=== PATIENT | born 1960 ===

== ENCOUNTER 2025-05-27 14:51 | Outpatient (NON) | payer MEDICARE, SELFPAY ==
--- OUTSIDE RECORDS SUMMARY | 2025-05-27 14:59 | XMS_ITS | Encounter Summary ---
Author Organization [facility] Address [address] [place] [address] Phone Care Team Providers Care Supervisor Laboratory Name Role Phone Dakota Sheldon MD Primary Care Provider [phone] Miscellaneous, Not In File Unavailable Unava ilable Encounter Details Date Type Department Care Team (Late st Contact Info) Description 04/01/2025 Telephone [facility] Scheduling [address] [place], [place] [id number] Maximo Dominguez MD [address] [phone] Social History Tobacco Use Types Packs/Day Years Used Date Smoking Tobacco: Never Passive Smoke Exposure: Past Smokeless Tobacco: Former Chew Quit: [address] [facility] Utilities Answer Date Recorded In the past 12 months has [employer], gas, oil, or water [employer] threatened to shut off services in your home? No 02/11/2025 Social Connection and Isolat ion Panel [NHANES] Answer Date Recorded In a typical week, how many times do you talk on the phone with family, friends, or neighbors? More than three times a week 02/11/2025 How often do you get togethe r with friends or relatives? Twice a week 02/11/2025 How often do you attend [facility] or mu-ism services? Never 02/11/2025 Do you belong to any clubs o r organizations such as methodist groups, unions, fraternal or athletic groups, or school groups? No 02/11/2025 How often do you attend meet ings of the clubs or organizations you belong to? Never 02/11/2025 Are you , , di vorced, , never , or living with a partner? 02/11/2025 AUDIT-C Answer Date Recorded Q1: How often do you have a drink containing alcohol? Never 01/31/2025 Q2: How many drinks containi ng alcohol do you have on a typical day when you are drinking? Patient does not drink Q3: How often do you have si x or more drinks on one occasion? Never 01/31/2025 Overall Financial Resource Strain (CARDIA) Answe r Date Recorded How hard is it for you to pa y for the very basics like food, housing, medical care, and heating? Not hard at all 02/11/2025 PHQ-2 Answer Date Recorded PHQ-2 Total Score 0 02/11/2025 Hunger Vital Sign Answer Date Recorded Within the past 12 months, y ou worried that your food would run out before you got the money to buy more. Never true 02/12/20 Within the past 12 months, t he food you bought just didn't last and you didn't have money to get more. Never true 02/11/2025 PRAPARE - Transportation Answer Date Re corded In the past 12 months, has l ack of transportation kept you from medical appointments or from getting medications? No 01/19 In the past 12 months, has l ack of transportation kept you from meetings, work, or from getting things needed for daily living? No 02/11/2025 Housing Stability Vital Sign Answer Addison e Recorded In the last 12 months, was t here a time when you were not able to pay the mortgage or rent on time? No 02/11/2025 In the past 12 months, how m any times have you moved where you were living? 0 02/11/2025 At any time in the past 12 m [facility], were you homeless or living in a penitentiary (including now)? No 02/11/2025 Personal Safety Answer Date Recorded Have you ever been in or are you currently in a harmful physical or emotional relationship or is someone making you feel afraid or unsafe? Denies 02/11/2025 Sex and Gender Information Value Date Recorded Sex Assigned at Male 09/03/2024 6:44 PM CHILDREN'S MINISTRY DIRECTOR Legal Sex Male 9:50 AM CDT Gender Identity Male 09/03/2024 6:44 PM CHILDREN'S MINISTRY DIRECTOR Sexual Orientation Felipe 09/03/2024 6: 44 PM CHILDREN'S MINISTRY DIRECTOR documented as of this encounter Plan of Treatment Not on file documented as of this encounter Visit Diagnoses Not on filedocumented in this encounter Care Teams Supervisor Laboratory Relationship Specialty Start Date End Date Dakota Sheldon MD [address] [place] [address] PCP - General Family Medicine 04/27/24 Miscellaneous, Not In File 11/05/24 documented as of this encounter
--- OUTSIDE RECORDS SUMMARY | 2025-05-27 14:59 | XMS_ITS | Encounter Summary ---
Author Organization [facility] Address [address] [place] [address] Care Team Providers Care Balance Weigher Name Role Phone Unavailable Primary Care Provider Unavailabl e Encounter Details Date Type Department Care Team (Late st Contact Info) Description 08/09/2024 Lab Requisition [facility] Laboratory Services [address] [place] [phone] Wimler Rodriguez MD [address] [place], [place] [id number] Severe sepsis without septic shock (CODE) (CMS/HCC); Sepsis, unspecified organism (CMS/HCC) Social History Tobacco Use Types Packs/Day Years Used Date Smoking Tobacco: Never Assessed Sex and Gender Information Value Date Recorded Sex Assigned at Not on file Legal Sex Male 3:22 PM CDT Gender Identity Not on file Sexual Orientation Not on file documented as of this encounter Plan of Treatment Not on file documented as of this encounter Procedures Procedure Name Priority Date/Time Associated Diagnosis Comments CBC WITH DIFFERENTIAL Routine 08/09/2024 11:15 AM CDT Severe sepsis without septic shock (CODE) Sepsis, unspecified organism COMPREHENSIVE METABOLIC PANEL Routine 08/09/2024 11:15 AM CDT Severe sepsis without septic shock (CODE) Sepsis, unspecified organism documented in this encounter Results * (ABNORMAL) CBC WITH DIFFERENTIAL (08/09/2024 11:15 AM CDT) WBC 5.6 3.5 - 11.0 K/uL 08/09/2024 3:[address] [facility] RBC 4.32(L) 4.40 - 5.90 M/uL 08/09/2024 3:53 PM [facility] HEMOGLOBIN 11.5(L) 13.3 - 17.7 g/dL 08/09/2024 3:53 PM [facility] HEMATOCRIT 36.9(L) 40.0 - 52.0 % 08/09/2024 3:53 PM [facility] MCV 85.5 80.5 - 99.7 fL 08/09/2024 3:53 PM [facility] MCH 26.7 26.4 - 34.0 pg 08/09/2024 3:53 PM [facility] MCHC 31.2(L) 31.4 - 36.3 g/dL 08/09/2024 3:53 PM [facility] RDW 16.5(H) 11.0 - 15.0 % 08/09/2024 3:53 PM [facility] PLATELETS 299 150 - 450 K/uL 08/09/2024 3:53 PM [facility] MPV 6.8(L) 7.5 - 11.2 fL 08/09/2024 3:53 PM [facility] NEUTROPHILS 55 50 - 75 % 08/09/2024 3:53 PM [facility] LYMPHOCYTES 30 19 - 48 % 08/09/2024 3:53 PM [facility] MONOCYTES 9 0 - 10 % 08/09/2024 3:53 PM [facility] EOSINOPHILS 4 0 - 6 % 08/09/2024 3:53 [facility] BASOPHILS 1 0 - 2 % 08/09/2024 3:53 PM [facility] NEUTROPHIL ABSOLUTE 3.06 >=0.50 K/uL 08/09/2024 3:53 PM [facility] LYMPHOCYTE ABSOLUTE 1.68 K/uL 08/09/2024 3:53 PM [facility] MONOCYTE ABSOLUTE 0.53 K/uL 08/09/2024 3:53 PM [facility] EOSINOPHIL ABSOLUTE 0.25 K/uL 08/09/2024 3:[address] [facility] BASOPHILS ABSOLUTE 0.07 K/uL 08/09/2024 3:[address] [facility] Blood 08/09/2024 11:1 5 AM CDT 08/09/2024 1:32 PM CDT Wilmer Rodriguez MD HEMATOLOGY ORDERABLES Final Result [facility] [id number] [address] [place] [id number] * (ABNORMAL) COMPREHENSIVE METABOLIC PANEL (08/09/2024 11:15 AM CDT) SODIUM 142 136 - 145 mmol/L 08/09/2024 2:41 PM [facility] POTASSIUM 4.0 3.2 - 4.9 mmol/L 08/09/2024 2:41 PM [facility] CHLORIDE 107 98 - 111 mmol/L 08/09/2024 2:41 PM T [facility] CO2 24 22 - 29 mmol/L 08/09/2024 2:41 PM T [facility] CALCIUM 9.0 8.4 - 10.5 mg/dL 08/09/2024 2:[address] [facility] BUN 25(H) 6 - 24 mg/dL 08/09/2024 2:41 PM T [facility] CREATININE 1.39 0.70 - 1.40 mg/dL 08/09/2024 2:[address] [facility] GLUCOSE 83 70 - 115 mg/dL 08/09/2024 2:[address] [facility] TOTAL PROTEIN 6.8 6.0 - 8.4 g/dL 08/09/2024 2:41 PM CDT [facility] ALBUMIN 3.8 3.5 - 5.2 g/dL 08/09/2024 2:41 PM CDT [facility] BILIRUBIN TOTAL 0.4 0.3 - 1.3 mg/dL 08/09/2024 2:41 PM [facility] ALKALINE PHOSPHATASE 80 40 - 150 U/L 08/09/2024 2:41 PM [facility] AST 19 <=39 U/L 08/09/2024 2:41 PM [facility] ALT 14 <=55 U/L 08/09/2024 2:41 PM [facility] GFR 57(L) >=60 mL/min/1.7 3 sq meter 08/09/2024 2:41 PM [facility] Comment:eGFR calculated with 2020 CKD-EPI equation. Vegetarian diet, extremely high or low muscle mass, and may affect results. Cystatin C with Glomerular Filtration Rate is a suitable alternative for these patients. ANION GAP 11 7 - 16 mmol/L 08/09/2024 2:41 PM [facility] Blood Collection / Unknown 08/09/2024 11:15 AM CDT 08/09/2024 1:32 PM CDT Wilmer Rodriguez MD CHEMISTRY ORDERABLES F inal Result [facility] [id number] [address] [place] [address] documented in this encounter Visit Diagnoses Diagnosis Severe sepsis without septic shock (CODE) (CMS/HCC) Sepsis, unspecified organism (CMS/HCC) documented in this encounter
--- OUTSIDE RECORDS SUMMARY | 2025-05-27 14:59 | XMS_ITS | Encounter Summary ---
Author Organization [facility] Address [address] [place] [address] Care Team Providers Care Toy Stuffer Name Role Phone Unavailable Primary Care Provider Unavailabl e Prior Encounters Date Type Department Care Team Description 06/05/2022 11:30 AM MDT Office Visit [facility] [address] [place] [address] Vicki Dietrich DMD 11/08/2019 Converted 13x Documents [facility] [address] [place] [phone] <No scans attached> 11/08/2019 Converted CPS Chart Documents [facility] [address] [place] [address] <No scans attached> Plan of Treatment Not on file Procedures Procedure Name Priority Date/Time Associated Diagnosis Comments PROPHYLAXIS - ADULT Routine 06/05/2022 1 1:30 AM MDT INTRAORAL PHOTO Routine 06/05/2022 11:30 AM MDT INTRAORAL PHOTO Routine 06/05/2022 11:30 AM MDT INTRAORAL PHOTO Routine 06/05/2022 11:30 AM MDT INTRAORAL - COMPREHENSIVE SERIES OF RADIOGRAPHIC IMAGES Routine 06/05/2022 11:30 AM MDT COMPREHENSIVE ORAL EVALUATION - NEW OR ESTABLISHED PATIENT Routine 06/05/2022 11:30 AM MDT INTRAORAL PHOTO Routine 06/05/2022 11:30 AM MDT PANORAMIC RADIOGRAPHIC IMAGE Routine 06/05/2022 11:30 AM MDT 8 MIF(V)L COMPOSITE FILLING Routine 06/05/2022 12:00 AM MDT 9 MIF(V)L COMPOSITE FILLING Routine 06/05/2022 12:00 AM MDT 20 DOBL COMPOSITE FILLING Routine 2021 12:00 AM MDT 30 MODBL AMALGAM FILLING Routine 022 12:00 AM MDT 31 O AMALGAM FILLING Routine 06/05/2022 12:00 AM MDT 3 KWASI AMALGAM FILLING Routine 06/05/2022 12:00 AM MDT 4 O AMALGAM FILLING Routine 06/05/2022 1 2:00 AM MDT 18 O AMALGAM FILLING Routine 06/05/2022 12:00 AM MDT 14 DOBL AMALGAM FILLING Routine 06/05/20 22 12:00 AM MDT 6 PFM CROWN Routine 06/05/2022 12:00 AM MDT 7 PFM CROWN Routine 06/05/2022 12:00 AM MDT PANORAMIC RADIOGRAPHIC IMAGE Routine 09/28/2019 1:00 AM MST ADDITIONAL X-RAY Routine 09/28/2019 1:00 AM MST SINGLE X-RAY Routine 09/28/2019 1:00 AM MST INTRAORAL PHOTO Routine 09/28/2019 1:00 AM MST Visit Diagnoses Not on file Insurance [facility]
--- OUTSIDE RECORDS SUMMARY | 2025-05-27 14:59 | XMS_ITS | Clinical Summary ---
Author Organization [facility] Address [address] [place] [address] Care Team Providers Care Automatic Coin Machine Mechanic Name Role Phone Unavailable Primary Care Provider Unavailabl e Social History Tobacco Use Types Packs/Day Years Used Date Smoking Tobacco: Never Assessed Sex and Gender Information Value Date Recorded Sex Assigned at Not on file Legal Sex Male 11:29 AM PDT Gender Identity Male 06/03/2022 9:11 AM PDT Sexual Orientation Not on file Plan of Treatment Health Maintenance Due Date Last Done Comments Dental Oral Exam 12/07/2022 06/05/2022 Dental Prophylaxis 12/07/2022 06/05/2022 Dental X-Ray: Bitewings 12/07/2022 06/05/2022 Dental X-Ray: Full Mouth 06/06/2025 06/05/2022 Dental X-Ray: Panoramic 06/06/2025 06/05/2022, 06/02, 09/28/2019 Procedures Procedure Name Priority Date/Time Associated Diagnosis Comments PANORAMIC RADIOGRAPHIC IMAGE Routine 06/05/2022 11:30 AM MDT PROPHYLAXIS - ADULT Routine 06/05/2022 1 1:30 AM MDT INTRAORAL - COMPREHENSIVE SERIES OF RADIOGRAPHIC IMAGES Routine 06/05/2022 11:30 AM MDT COMPREHENSIVE ORAL EVALUATION - NEW OR ESTABLISHED PATIENT Routine 06/05/2022 11:30 AM MDT from Last 3 Months or Most Recently Relevant to Health Maintenance [facility] [place] [id number]
--- OUTSIDE RECORDS SUMMARY | 2025-05-27 14:59 | XMS_ITS | Clinical Summary ---
Author Organization [facility] [address] [place] [address] eet Address [address] [place] [address] Care Team Providers Care Bandoleer Packer Name Role Phone Unavailable Primary Care Provider Unavailabl e Allergies Active Allergy Reactions Criticality Noted Date Comments Tramadol Nausea and Vomiting Low 08/31/2024 Encounters Date Type Department Care Team Description 04/12/2025 External Device Data [facility] ABSTRACTION Provider, Abstract from Last 3 Months Social History Tobacco Use Types Packs/Day Years Used Date Smoking Tobacco: Never Assessed Sex and Gender Information Value Date Recorded Sex Assigned at Not on file Legal Sex Male 3:22 PM CDT Gender Identity Not on file Sexual Orientation Not on file Last Filed Vital Signs Vital Sign Reading Time Taken Comments Blood Pressure 124/84 08/31/2024 8:44 AM TESTING ENGINEER Pulse 95 08/31/2024 8:44 AM TESTING ENGINEER Temperature 36.8 C (98.2 F) 08/31/2024 8:44 AM TESTING ENGINEER Respiratory Rate 16 08/31/2024 8:44 AM TESTING ENGINEER Oxygen Saturation 100% 08/31/2024 8:44 AM TESTING ENGINEER Inhaled Oxygen Concentration - - Weight 68 kg (150 lb) 08/31/2024 8:44 AM TESTING ENGINEER Height 172.7 cm (5' 8) 08/31/2024 8:44 AM TESTING ENGINEER Body Mass Index 22.81 08/31/2024 8:44 AM TESTING ENGINEER Plan of Treatment Health Maintenance Due Date Last Done Comments DIABETES ANNUAL FOOT EXAM 12/23/1979 DIABETES MICROALBUMIN ANNUAL SCREEN 12/23/1979 LDL CHOLESTEROL ANNUAL 12/23/1979 COLORECTAL SCREENING 2006 Colorectal Cancer Screening 2006 FIT-DNA Q 3 years 2006 FIT/FOBT Q 1 year 2006 Flex Sig/CT Colonography Q 5 years 2006 RSV VACCINE (60+ or ) (1 - Risk 60-74 years 1-dose series) 2021 COVID-19 Vaccine (4 - 2023-2 5 season) 2024 01/22/2022, 07/02/2021, 12/12/2020 DIABETES HBA1C Q 6 MONTHS 01/09/2025 07/12/2024 DIABETES ANNUAL RETINAL EXAM 01/21/2025 01/22/2024 INFLUENZA VACCINE (#1) 2025 3, 07/25/2022, 08/24/2021, Additional history exists DTAP/TDAP/TD VACCINES (2 - T d or Tdap) 06/19/2025 06/19/2015 ZOSTER VACCINE Completed 05/20/2019, 03/20/2019 Insurance [employer] GOLD CHOICE [facility] Address: [address] [address]
--- OUTSIDE RECORDS SUMMARY | 2025-05-27 14:59 | XMS_ITS | Encounter Summary ---
Author Organization [facility] Address [address] [facility] [address] [place] [address] Phone Care Team Providers Care Climbing Guide Name Role Phone Dakota Sheldon MD Primary Care Provider [phone] Miscellaneous, Not In File Unavailable Unava ilable Encounter Details Date Type Department Care Team (Late st Contact Info) Description 05/18/2025 Results Follow-Up [facility]rology [address] [facility] [address] [place] [address] Rita Hernandez MD [address] [facility] [place] [place] [address] Aerobic and anaerobic culture and gram stain Wound Abdominal Social History Tobacco Use Types Packs/Day Years Used Date Smoking Tobacco: Never Passive Smoke Exposure: Past Smokeless Tobacco: Former Chew Quit: 2006 [facility] Utilities Answer Date Recorded In the past 12 months has [employer] gas, oil, or water [employer] threatened to shut off services in your home? Patient unable to answer 05/16/2025 Social Connection and Isolation Panel [NHANES] A nswer Date Recorded In a typical week, how many times do you talk on the phone with family, friends, or neighbors? Patient unable to answer 05/16/2025 How often do you get togethe r with friends or relatives? Patient unable to answer 05/16/2025 How often do you attend chur ch or worship services? Patient unable to answer 05/16/2025 Do you belong to any clubs o r organizations such as anglican groups, unions, fraternal or athletic groups, or school groups? Patient unable to answer 05/16/2025 How often do you attend meet ings of the clubs or organizations you belong to? Patient unable to answer 05/16/2025 Are you , , di vorced, , never , or living with a partner? Patient unable to answer 05/16/2025 AUDIT-C Answer Date Recorded Q1: How often [...] like food, housing, medical care, and heating? Patient unable to answer 05/16/2025 PHQ-2 Answer Date Recorded PHQ-2 Total Score (If total score is 3 or more points, staff should administer the PHQ-9) 1 04/18/2025 Hunger Vital Sign Answer Date Recorded Within the past 12 months, y ou worried that your food would run out before you got the money to buy more. Patient unable to answer 05/16/2025 Within the past 12 months, t he food you bought just didn't last and you didn't have money to get more. Patient unable to answer 05/16/2025 PRAPARE - Transportation Answer Date Re corded In the past 12 months, has l ack of transportation kept you from medical appointments or from getting medications? Patient unable to answer 05/16/2025 In the past 12 months, has l ack of transportation kept you from meetings, work, or from getting things needed for daily living? Patient unable to answer 05/16/2025 Housing Stability Vital Sign Answer Addison e Recorded In the last 12 months, was t here a time when you were not able to pay the mortgage or rent on time? Patient unable to answer 05/16/2025 In the past 12 months, how m any times have you moved where you were living? 0 05/16/2025 At any time in the past 12 m ont, were you homeless or living in a care home (including now)? Patient unable to answer 05/16/2025 Personal Safety Answer Date Recorded Have you ever been in or are you currently in a harmful physical or emotional relationship or is someone making you feel afraid or unsafe? Denies 05/16/2025 Sex and Gender Information Value Date Recorded Sex Assigned at Male 09/03/2024 6:44 PM BAKER DOUGHNUT Legal Sex Male 9:50 AM CDT Gender Identity Male 09/03/2024 6:44 PM BAKER DOUGHNUT Sexual Orientation Felipe 09/03/2024 6: 44 PM BAKER DOUGHNUT documented as of this encounter Miscellaneous Notes * Result Encounter Note - Rita Hernandez MD - 05/18/2025 10:42 AM CDT Culture reviewed Patient is on appropriate antibiotics documented in this encounter Plan of Treatment Not on file documented as of this encounter Visit Diagnoses Not on filedocumented in this encounter Care Teams Climbing Guide Relationship Specialty Start Date End Date Dakota Sheldon MD [address] [place] [address] PCP - General Family Medicine 04/27/24 Miscellaneous, Not In File 11/05/24 documented as of this encounter
--- OUTSIDE RECORDS SUMMARY | 2025-05-27 14:59 | XMS_ITS | Clinical Summary ---
Author Organization [facility] Address [address] [place] [address] Care Team Providers Care Circulator Name Role Phone Dakota Sheldon MD Primary Care Provider [phone] Miscellaneous, Not In File Unavailable Unava ilable Allergies Active Allergy Reactions Criticality Noted Date Comments Adhesive Rash,Redness Medium 06/25/2024 Benzene Blisters High 06/02/2024 Benzphetamine Blisters High 04/01/2025 Ciprofloxacin Nausea only Low 01/31/2025 Brimonidine-Timolol Other (See comments) Low 2018 Blisters --- he tells me he tolerates timolol and takes this. Alvimopan Diarrhea Low 06/02/2024 Tramadol Nausea And Vomiting Low 06/02/2024 Medications TiZANidine (ZANAFLEX) 4 mg capsuleIndications:M uscle Spasm Take 2-6 mg by mouth 2 (two) times a day Half pill (2mg) in AM and 1.5 pills (6mg) at night Active colestipoL (COLESTID) 1 gram tabletIndications:Bi liary Obstruction with Pruritus Take 1 tablet (1 g total) by mouth 2 (two) times a day Active timoloL (BETIMOL) 0.5 % ophthalmic solutionIndications: open angle glaucoma Administer 1 drop into both eyes 2 (two) times a day Active aspirin 81 mg enteric coated tabletIndications:pr evention of thrombosis Take 1 tablet (81 mg total) by mouth nightly Active coenzyme Q10 100 mg capsuleIndications:s upplement Take 1 capsule (100 mg total) by mouth every morning Active blood glucose diagnostic (Accu-Chek Negra Plus test strp) strip 05/28/20 24 Active cholecalciferol (VITAMIN D-3) 2000 unit capsuleIndications:V itamin D Deficiency Take 1 capsule (2,000 Units total) by mouth 2 (two) times a day Active Accu-Chek Softclix Lancets lancets 03/24/20 24 Active latanoprost (XALATAN) 0.005 % ophthalmic solutionIndications: open angle glaucoma Administer 1 drop into both eyes nightly Active tamsulosin (FLOMAX) 0.4 mg extended release capsule Take 1 capsule (0.4 mg total) by mouth daily with dinner 30 capsule 1 07/26/20 24 Active Additional Information Patient taking differently:0.4 mg oral Daily with dinner,Indications: benign prostatic hyperplasia with lower urinary tract sx, Informant: Self, Reported on 04/01/2025 semaglutide (Rybelsus) 14 mg tabletIndications:ch ronic kidney disease associated with type 2 diabetes Take 1 tablet (14 mg total) by mouth rehabilitation therapist before breakfast Active atorvastatin (LIPITOR) 10 mg tabletIndications:co ronary artery disease,hyperlipidem ia Take 1 tablet (10 mg total) by mouth nightly Active metoprolol XL (TOPROL-XL) 50 mg extended release tabletIndications:Ve ntricular Arrhythmias,coronary artery disease Take 1 tablet (50 mg total) by mouth nightly Active ascorbic acid 500 mg tablet,chewableIndic ations:immune supplement Take 1 tablet/chew tab (500 mg total) by mouth rehabilitation therapist before breakfast Active cyanocobalamin, vitamin B-12, 1,500 mcg tablet,chewableIndic ations:Prevention of Vitamin B12 Deficiency Take 1,000 mcg by mouth rehabilitation therapist before breakfast Active acetaminophen 500 mg capsuleIndications:P ain Take 2 capsules (1,000 mg total) by mouth every 6 (six) hours as needed for pain or headaches 09/19/20 24 Active vitamin B complex capsuleIndications:V itamin Deficiency Prevention Take 1 capsule by mouth rehabilitation therapist before breakfast Active diphenhydrAMINE-acet aminophen (TYLENOL PM) 25-500 mg tabletIndications:In somnia Take 2 tablets by mouth nightly Active lutein-zeaxanthin 25-5 mg capsuleIndications:e ye supplement Take 1 capsule by mouth rehabilitation therapist before breakfast Active loratadine (CLARITIN) 10 mg tabletIndications:Al lergic Rhinitis Take 1 tablet (10 mg total) by mouth rehabilitation therapist before breakfast Active coffee xt/phosphatidyl serine (NEURIVA ORIGINAL ORAL)Indications:bra in supplement Take 1 capsule by mouth rehabilitation therapist before breakfast Active ELDERBERRY FRUIT ORALIndications:immu ne support Take 1 tablet/chew tab by mouth rehabilitation therapist before breakfast Active polyethylene glycol (MIRALAX) 17 gram/dose bulk powder Take 17 g by mouth daily 510 g 02/12/20 25 Active polyethylene glycol (MIRALAX) 17 gram/dose bulk powderIndications:co nstipation Take 17 g by mouth daily 03/07/20 25 Active dolutegravir-rilpivi rine (JULUCA) 50-25 mg tabletIndications:HI V infection Take 1 tablet by mouth rehabilitation therapist before breakfast 65 tablet 03/07/20 25 Active oxyCODONE (ROXICODONE) 5 mg immediate release tabletIndications:Pa in Take 1 tablet (5 mg total) by mouth every 4 (four) hours as needed for pain 20 tablet 03/07/20 25 Active Neuriva Plus Brain Performance 1.7 mg-400 mcg- 2.4 mcg capsule 03/07/20 25 Active oxyBUTYnin XL (DITROPAN XL) 15 mg 24 hr tablet Take 1 tablet (15 mg total) by mouth daily 11/14/19 25 Active vit C,X-Um-aiqtv-lutein- zeaxan (Ocuvite Lutein and Zeaxanthin) 60 mg-13.5 mg- 15 mg-2 mg-6 mg capsule Take by mouth 03/19/20 25 Active sevelamer (RENVELA) 800 mg tabletIndications:Re nal Osteodystrophy with Hyperphosphatemia Take 1 tablet (800 mg total) by mouth 2 (two) times a day with lunch and dinner 60 tablet 2 03/31/20 25 025 Active sulfamethoxazole-tri methoprim (BACTRIM DS) 800-160 mg per tablet Take 1 tablet by mouth 2 (two) times a day for 10 days 20 tablet 05/16/20 25 025 Active Problems Problem Noted Date Diagnosed Date Wound dehiscence 05/15/2025 Stage 4 chronic kidney disease 04/25/2025 Overview (04/25/2025): Following with nephrology, considering HD. Also following with urology for post-nephrectomy and urothelial carcinoma. Repeat CMP today Anemia 03/28/2025 Physical debility 03/28/2025 Discharge planning issues 02/14/2025 Assessment & Plan (02/26/2025 10:11 AM CDT): Lives in and uses walker at baseline for mobility -PT/OT recommending SNF placement 02/14: CM sending referrals for SNF placement 02/22: Lost authorization to SNF after being kept inpatient 11/21 worsening renal function 02/26: Renal function improving while off IVF, awaiting authorization for SNF ROLAN (acute kidney injury) 02/13/2025 Assessment & Plan (02/26/2025 10:12 AM CDT): 02/12: Cr 3.8, RBUS negative 02/13: Cr 4.18, 3L UOP 02/14: Cr 4.14, 3150cc UOP. Nephrology c/s yesterday, reportedly felt consult not necessary as appropriate increase in Cr post-op from nephroureterectomy. 02/26: Cr 4.66, 3400cc UOP. 1570cc PO intake charted. -Strict I/O -Limit nephrotoxic medications, renally dose medications -Optimize FEN Hypertension 02/13/2025 Assessment & Plan (02/13/2025 10:23 AM CDT): -home metoprolol xl Ureteral tumor 02/10/2025 Assessment & Plan (02/14/2025 11:28 AM CDT): 02/10: robotic L nephu for UTUC 02/13: Febrile to 102.6 ON with associated hypotension, tachycardia. Septic workup initiated, started on cefepime. VS improved currently with fluid resuscitation. 02/14: ID consult for fever ISO HIV infection -Continue watts to gravity Acute postoperative pain 02/10/2025 Sepsis 10/28/2024 Nephrolithiasis 09/08/2024 Renal mass 09/08/2024 Septic shock 09/03/2024 Stones in the urinary tract 09/02/2024 Severe protein-calorie malnutrition 07/17/2024 Assessment & Plan (07/17/2024 9:39 AM CDT): Dietitian following, ensure good meal intake + supplements. Severe sepsis 07/13/2024 Assessment & Plan (07/22/2024 1:16 PM CDT): Leukocytosis, fever, tachycardic, symptoms of ascending urinary tract infection with consistent UA and CT, and ROLAN c/w severe sepsis. His fistula and coccyx wound appears ok and not infected. No respiratory symptoms. He has complex pathogen history including urinary and wound Morganella morganii; urinary Staph Aureus, Enterococcus faecium, and Monique albicans. Most recently finished 2 courses of Doxy/Fluconazole. Staph aureus in the urine c/f blood infection. -S/P vanc/cefe in ED. For now on remains on fluconazole and will changed cefepime to ertapenem. -Follow up blood cultures, urine culture, and intraoperative kidney aspirate culture Current plan is for fluconazole po x 2 wks and ertapenem x 6 wks (ordered 5 weeks accounting for his time in the hospital). Full sensitivies are pending [facility] and may take several more days - plan for fluconazole 2 weeks, erta 6 weeks unless at some point able to go back on bactrim - Has CVC placed 07/20 - out of network for [facility] home infusion, will try to coordinate with PCP for OPA Pressure injury of coccygeal region, stage 1 Assessment & Plan (07/13/2024 2:10 AM CDT): Noted on arrival. Followed by wound care. Appears healing. -Continue wound care - wound care consult -Q2 hour turns. -PT/OT HIV disease 07/13/2024 Assessment & Plan (04/25/2025 10:36 AM CDT): On Juluca prescribed by [facility] doctor. Adherent to doses. Potential drug- drug interaction / absorbance issues with TID calcium carbonate started by nephrology. Will repeat labs today including VL, CD4, CMP. If VL elevated, would likely advise switching to injectable formulation or ART (Cabanuvo) which we discussed with the patient and . - Pending results, continue Juluca - May need switch to injectable ART, which should be permissible with current GFR/CKD - If initiates hemodialysis, can resume Biktarvy Assessment & Plan (02/16/2025 11:54 AM CDT): Patient is a 64 y.o. male with [facility] (last VL UD CD4 448), who is presenting for robotic assisted left nephroureterectomy for urothelial carcinoma performed on 02/10/25. Patient was doing well post-op but developed fever on 02/12 Tmax 39.2C. He was started empirically on vancomycin x1 and cefepime. Blood culture x2 02/12 NGTD, Urine culture 02/12 had clinically insignificant growth, and influenza, RSV, and COVID PCR were all negative. CXR 02/12 showed new moderate left basilar obacities compatible with aspiration and partial left lobe atelectasis. Currently he reports feeling better, no SOA, cough, chest pain, nausea, vomiting, diarrhea, rash. He reports some constipation. ID was consulted to help in management of antimicrobials given recent fever. Likely cause of fever was due to aspiration, without further causes can consider stopping antibiotics within the next 24 hours if cultures remain negative. Cefepime discontinued on 02/15. Creatinine notably up from baseline prior to surgery. Reached out to primary team to assess if this is patient's new baseline vs expecting renal function to improve. Primary team planning to touch base with nephrology. If this is patient's new baseline, will need to consider a change in HIV regimen. Discussed this with patient and asked if he would be able to see his primary HIV ID provider shortly after discharge. Patient reports he is currently not scheduled to be seen until May. Patient sees Dr. Milind Portillo Infectious Disease Specialist [phone] as his primary ID provider. Results: -CXR 02/12: New moderate left basilar opacities compatible with aspiration and partial left lower lobe atelectasis -Urine culture 02/12: clinically insignificant growth -Pneumonia PCR sputum 02/15: In process ID spoke with Dr. Portillo and it was decided Juluca would be a reasonable alternative for this patient. Discussed this with patient who is agreeable. Additionally, given patient plans to stay in the area for a prolonged period of time, discussed following up outpatient with [facility] to continue management. Patient was pleased with the plan. Spoke to patient's spouse, Wilmer, per patient's request. Discussed renal function, conversation with Dr Portillo and plan to transition to Juluca. Additionally, reviewed plan for outpatient follow up with Dr. Ramos. Questions answered as needed. Recommendations: -d/c Odefsey and start Juluca -appreciate nephrology recs regarding renal function. -Will reach out to clinic to establish follow up -Thank you for allowing us to participate in the care of this patient. For questions or concerns, please do not hesitate to reach out. Assessment & Plan (02/13/2025 10:20 AM CDT): -continue home meds Assessment & Plan (07/15/2024 4:11 PM CDT): [place] in [place] On Odefsey [id number] which we do not have formulary. On his home HAART therapy. Type 2 diabetes mellitus 07/13/2024 Assessment & Plan (07/17/2024 9:39 AM CDT): Takes metformin and glyxambi at home. Noted to have an AGMA on arrival though this has resolved making euglycemic DKA unlikely - more likely related to ROLAN. -Hold home orals -cont basal-bolus insulin regimen here, adjust insulin as needed Acute renal failure superimp osed on stage 3a chronic kidney disease 07/12/2024 Assessment & Plan (07/20/2024 2:00 PM CDT): Baseline Cr ~1.5 05/31/24 which is a CrCl around 47 by Cockroft-Gault formula. Up to creatinine 2.4 on admission iso obstructing stone and severe sepsis. Now s/p definitive treatment with ureteral stents. 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 Followed by Urology here with plans for SPT on 07/14/24 for urinary diversion which is now on hold - to continue with watts until follow up, continues to have leakage. urology, plan to increase oxybutinin XR to 15mg -Urology consultation Benign prostatic hyperplasia 04/04/2020 Hyperlipidemia 02/26/2018 Encounters Date Type Department Care Team Description 05/18/2025 Results Follow-Up [facility] Urology [address] [place] [phone] Rita Hernandez MD Aerobic and anaerobic culture and gram stain Wound Abdominal 05/15/2025 6:03 PM CDT - 05/16/2025 4:10 PM CDT Hospital Encounter [address] [phone] India Shook MD Smelser, Woodson Wade, MD Brown, Lawrence Robert, MD PhD Wound dehiscence (Primary Dx); Stage 5 chronic kidney disease not on chronic dialysis (HCC); Physical debility; Severe protein-calorie malnutrition Discharge Disposition: Discharge to home, home health skilled care 04/25/2025 10:32 AM CDT - 04/25/2025 11:59 PM CDT Hospital Encounter [facility] [address] [place] [address] Discharge Disposition: Discharge to home or self care 04/25/2025 9:40 AM CDT Office Visit [facility] Infectious Diseases [address] [place] [address] Juni Ramos MD HIV disease (HCC) (Primary Dx); Screening examination for STI; Stage 4 chronic kidney disease (HCC); Abnormal finding of blood chemistry, unspecified; HIV infection, unspecified symptom status (HCC) 04/07/2025 Telephone [facility] Infectious Diseases [address] [place] [address] Dustin Courtney TERRANCE 04/01/2025 10:20 AM CDT Office Visit [facility] Urology [address] [place] [address] Rita Hernandez MD Malignant neoplasm of urinary bladder, unspecified site (HCC) (Primary Dx) 04/01/2025 Telephone [facility] Scheduling [address] [place] [address] Maximo Dominguez MD 03/31/2025 1:40 PM CDT Office Visit [facility] Nephrology [address] [place] [address] [place] [phone] ROLAN (acute kidney injury); CKD (chronic kidney disease) requiring chronic dialysis (HCC) 03/31/2025 Telephone [facility] Nephrology [address] 5th [place] [address] [place] [address] Chiara Conrad MD [facility] KATHLEEN 03/31/2025 Orders Only [facility] Nephrology [address] [place] [address] [place] [phone] Chiara Conrad MD CKD (chronic kidney disease) requiring chronic dialysis (HCC) (Primary Dx) 03/25/2025 10:40 AM CDT Office Visit [facility] Urology [address] [facility] [address] [facility] [address] [place] [phone] Anjelica Ro NP Encounter for post surgical wound check (Primary Dx) 03/23/2025 Telephone [facility] Surgery [address] [place] [address] Sharri Osuna 03/23/2025 Orders Only [facility] Urology [address] [facility] [address] [facility] [address] [place] [address] Rita Hernandez MD 02/10/2025 11:33 AM CDT - 03/07/2025 5:39 PM CDT Hospital Encounter [facility] [address] [place] [address] Rita Hernandez MD Acute postoperative pain (Primary Dx); Acute renal failure superimposed on stage 3a chronic kidney disease, unspecified acute renal failure type (HCC); Renal mass; Urethral fistula; Ureteral tumor Discharge Disposition: Discharge to SNF from Last 3 Months Immunizations Immunization Administration Dates Next Due Influenza, Quadrivalent, Spl it, Intramuscular 08/24/2021,06/30/2020,07/11/2019 Influenza, Quadrivalent, Spl it, Preservative Free, Intramuscular 08/13/2023,07/25/2022 Influenza, Unspecified 07/18/2017,06/25/2016 Moderna SARS-CoV-2 Monovalen t Vaccination (12+ YRS) 01/22/2022,07/02/2021 Pneumococcal Conjugate PCV 13 05/06/2016, 014 Pneumococcal Polysaccharide PPV23 02/26/2022 Sars-CoV-2, Unspecified 12/11/2020 Tdap 06/19/2015 ZOSTER Recombinant 05/20/2019,03/20/2019 Surgical History Surgery Date Site/Laterality Comments EXTERNAL FIXATION WRIST FRACTURE Right unknown date CATARACT EXTRACTION W/ INTRAOCULAR LENS IMPLANT 10/20/2000 - 10/19/2001 Bilateral COLONOSCOPY last one 08/2022 INCISION AND DRAINAGE 03/17/2024 perineal abscess, watts insertion, uretheral dilation BIOPSY PROSTATE NEEDLE / PUNCH / INCISIONAL 12/18/2022 - 01/17/2023 TUMOR EXCISION 02/17/2017 - 03/19/2017 transanal rectal tumor CENTRAL LINE PLACEMENT > 5 YEARS 07/20/2024 N/A Medical History Medical History Date Comments PONV (postoperative nausea and vomiting) Type 2 diabetes mellitus HIV (human immunodeficiency virus infection) (HC C) Family History Medical History Relation Name Comments Anesthesia problems Neg Hx Social History Tobacco Use Types Packs/Day Years Used Date Smoking Tobacco: Never Passive Smoke Exposure: Past Smokeless Tobacco: Former Chew Quit: 2006 Tobacco Cessation:Counseling Given: Not Answered [facility] Utilities Answer Date Recorded In the past 12 months has th e [employer], [employer], or [employer] threatened to shut off services in your [...] often do you attend chur ch or zoroastrian services? Patient unable to answer 05/16/2025 Do you belong to any clubs o r organizations such as nondenominational groups, unions, fraternal or athletic groups, or [...] any time in the past 12 m [facility], were you homeless or living in a custodial (including now)? Patient unable to answer 05/16/2025 Personal Safety Answer Date Recorded Have you ever been in or are you currently in a harmful physical or emotional relationship or is someone making you feel afraid or unsafe? Denies 05/16/2025 Sex and Gender Information Value Date Recorded Sex Assigned at Male 09/03/2024 6:44 PM WEED COOKING OPERATOR Legal Sex Male 9:50 AM CDT Gender Identity Male 09/03/2024 6:44 PM WEED COOKING OPERATOR Sexual Orientation Felipe 09/03/2024 6: 44 PM WEED COOKING OPERATOR Obstetrics History Last Filed Vital Signs Vital Sign Reading Time Taken Comments Blood Pressure 102/70 05/16/2025 11:27 AM CDT Pulse 75 05/16/2025 11:27 AM CDT Temperature 36.4 C (97.5 F) 05/16/2025 11:27 AM CDT Respiratory Rate 14 05/16/2025 11:27 AM CDT Oxygen Saturation 99% 05/16/2025 11:27 AM CDT Inhaled Oxygen Concentration - - Weight 68 kg (150 lb) 05/16/2025 2:13 AM CDT Height 172.7 cm (5' 8) 05/16/2025 2:13 AM CDT Body Mass Index 22.81 05/16/2025 2:13 AM CDT Plan of Treatment Health Maintenance Due Date Last Done Comments Albumin Creatinine Ratio, Urine 1961 Colon Cancer Screening-Colonoscopy 1961 HLA B 5701 Typing 1961 Prostate Cancer Screening-PSA 1961 Dilated Eye Exam 1961 Foot Exam 1961 HIV+ Chlamydia and Gonorrhea Screening (Rectal) 1972 HIV+ Chlamydia and Gonorrhea Screening (Throat) 1974 G6PD 12/23/1979 Hepatitis A Screening 12/23/1979 Hepatitis B Screening 12/23/1979 Regular Well Visit/Exam 18-64 12/23/1979 Hepatitis A Vaccines (1 of 2 - Risk 2-dose series) 1980 Osteoporosis Screening-Bone Density Scan 12/23/2011 Hepatitis B Vaccines (1 of 3 - Risk 3-dose series) 2021 Covid-19 Vaccine (6 - 2023-2 5 season) 2024 01/22/2022, 07/02/2021, 12/12/2020, Additional history exists DTaP/Tdap/Td Vaccine (2 - Td or Tdap) 06/19/2025 06/19/2015 Influenza Vaccine (#1) 2025 , 07/25/2022, 08/24/2021, Additional history exists Depression Screening 04/25/2026 04/25/2025, 01/15/20 Hemoglobin A1C 04/25/2026 04/25/2025, 01/18, 07/12/2024 Hepatitis C Screening 04/25/2026 04/25/2025 Lipid Panel 04/25/2026 04/25/2025, 02/10/2025 Proteinuria screening Urinalysis (UA) 04/25/2026 04/25/2025, 04/25/2025, 02/15/2025, Additional history exists RPR Screening 04/25/2026 04/25/2025 T Spot (quantiferon gold) 04/25/2026 04/25/2025 HIV + Chlamydia and Gonorrhe a Screening (Urine) 04/26/2026 04/26/2025 eGFR 05/15/2026 05/15/2025, 07/0 04/2025, 03/06/2025, Additional history exists Pneumococcal vaccine <65 (3 of 3 - PPSV23, PCV20 or PCV21) 02/26/2027 02/26/2022, 05/06/2016, 08/23/2014 Zoster Vaccine Completed 05/20/2019, 03/20/2019 Medical Devices Implanted Type Area Drawer Upfitter Device Identifier Shelf Expiration Date Model / Serial / Lot [employer] Slime Contour 6fr 24cm Large Inner Lumen Low Profile Bladder Zach[employer] Latex Free [id number] - [id number] Implanted:Qty: 1 on 09/15/2024 by Steve Rahman MD at [facility] Stent N/A: Ureter [employer] Slime [id number] 03/22/2027 [id number] / / [id number] [employer] Universa 6fr 24cm Radiopaque Graduate Firm Monofilament Tether [id number] - [id number] Implanted:Qty: 1 on 09/02/2024 at [facility] Right: Ureter [employer] 04/08/2027 [id number] / / [id number] Explanted Type Area Drawer Upfitter Device Identifier Shelf Expiration Date Model / Serial / Lot [employer] Universa 6fr 24cm Radiopaque Graduate Firm Monofilament Tether [id number] - [id number] Implanted:Qty: 1 on 07/12/2024 at [facility] Explanted:Qty: 1 on 09/02/2024 by Steve Rahman MD at [facility] Right: Ureter [employer] 01/19/2027 [id number] / / [id number] [employer] Universa 6fr 24cm Radiopaque Graduate Firm Monofilament Tether [id number] - [id number] Implanted:Qty: 1 on 07/12/2024 at [facility] Explanted:Qty: 1 on 09/02/2024 by Steve Rahman MD at [facility] Left: Ureter [employer] 02/01/2027 [id number] / / [id number] [employer] Universa 6fr 24cm Radiopaque Graduate Firm Monofilament Tether [id number] - [id number] Implanted:Qty: 1 on 09/02/2024 at [facility] Explanted:Qty: 1 on 02/10/2025 by Rita Hernandez MD at [facility] Left: Ureter [employer] 05/20/2027 [id number] / / [id number] Procedures Procedure Name Priority Date/Time Associated Diagnosis Comments POCT GLUCOSE DEVICE Routine 05/16/2025 2 :21 AM CDT POCT GLUCOSE DEVICE Routine 05/16/2025 1 2:39 AM CDT POCT GLUCOSE DEVICE Routine 05/15/2025 9 :19 PM CDT T-HELPER CELLS (CD4) COUNT STAT 05/15/2025 9:[address] ABDOMEN PELVIS WO CONTRAST ED 05/15/2025 8:47 PM CDT POCT GLUCOSE DEVICE Routine 05/15/2025 8 :10 PM CDT AEROBIC AND ANAEROBIC CULTURE AND GRAM STAIN STAT 05/15/2025 6:40 PM CDT BLOOD CULTURE Routine 05/15/2025 6:40 PM CDT BLOOD CULTURE Routine 05/15/2025 6:35 PM CDT EGFR STAT 05/15/2025 6:11 PM CDT DIFFERENTIAL AUTO STAT 05/15/2025 6:1 1 PM CDT APTT STAT 05/15/2025 6:11 PM CDT PROTIME-INR STAT 05/15/2025 6:11 PM CDT TYPE AND SCREEN STAT 05/15/2025 6:11 PM CDT COMPREHENSIVE METABOLIC PANEL STAT 05/15/2025 6:11 PM CDT CBC WITH AUTO DIFFERENTIAL STAT 05/15/2025 6:11 PM CDT POCT GLUCOSE DEVICE Routine 05/15/2025 3 :54 PM CDT EGFR Routine 04/25/2025 10:32 AM CDT HIV disease (HCC) Stage 4 chronic kidney disease (HCC) URINALYSIS, MICROSCOPIC ONLY Routine 04/25/2025 10:32 AM CDT HIV disease (HCC) DIFFERENTIAL AUTO Routine 04/25/2025 10: 32 AM CDT HIV disease (HCC) Stage 4 chronic kidney disease (HCC) T-HELPER CELLS (CD4) COUNT Routine 04/25/2025 10:32 AM CDT HIV disease (HCC) CBC WITH AUTO DIFFERENTIAL Routine 04/25/2025 10:32 AM CDT HIV disease (HCC) Stage 4 chronic kidney disease (HCC) LIPID PANEL Routine 04/25/2025 10:32 AM CDT HIV disease ([facility]) HEMOGLOBIN A1C Routine 04/25/2025 10:32 AM CDT HIV disease ([facility]) Abnormal finding of blood chemistry, unspecified COMPREHENSIVE METABOLIC PANEL Routine 04/25/2025 10:32 AM CDT HIV disease (HCC) Stage 4 chronic kidney disease (HCC) URINALYSIS AND REFLEX TO MICROSCOPIC Routine 04/25/2025 10:32 AM CDT HIV disease ([facility]) T-SPOT.TB Routine 04/25/2025 10:32 AM CDT HIV disease ([facility]) RPR Routine 04/25/2025 10:32 AM CDT HIV disease ([facility]) Screening examination for STI HIV-1 RNA, QUANTITATIVE, PCR Routine 04/25/2025 10:32 AM CDT HIV disease ([facility]) Screening examination for STI HEPATITIS C ANTIBODY Routine 04/25/2025 10:32 AM CDT HIV disease ([facility]) Screening examination for STI N. GONORRHOEAE/C. TRACHOMATIS AMPLIFICATION Routine 04/25/2025 10:32 AM CDT HIV disease ([facility]) Screening examination for STI POCT GLUCOSE DEVICE Routine 03/07/2025 1 1:51 AM CDT POCT GLUCOSE DEVICE Routine 03/07/2025 8 :35 AM CDT EGFR Timed 03/06/2025 9:41 PM CDT RENAL FUNCTION PANEL Timed 03/06/2025 9:41 PM CDT CBC WITHOUT DIFFERENTIAL Timed 03/06/2025 9:41 PM CDT POCT GLUCOSE DEVICE Routine 03/06/2025 8 :32 PM CDT POCT GLUCOSE DEVICE Routine 03/06/2025 6 :02 PM CDT POCT GLUCOSE DEVICE Routine 03/06/2025 3 :50 PM CDT POCT GLUCOSE DEVICE Routine 03/06/2025 1 2:13 PM CDT POCT GLUCOSE DEVICE Routine 03/06/2025 8 :16 AM CDT EGFR Timed 03/05/2025 9:24 PM CDT RENAL FUNCTION PANEL Timed 03/05/2025 9:24 PM CDT CBC WITHOUT DIFFERENTIAL Timed 03/05/2025 9:24 PM CDT POCT GLUCOSE DEVICE Routine 03/05/2025 7 :54 PM CDT POCT GLUCOSE DEVICE Routine 03/05/2025 4 :51 PM CDT POCT GLUCOSE DEVICE Routine 03/05/2025 1 1:37 AM CDT POCT GLUCOSE DEVICE Routine 03/05/2025 1 1:31 AM CDT POCT GLUCOSE DEVICE Routine 03/05/2025 1 1:30 AM CDT POCT GLUCOSE DEVICE Routine 03/05/2025 7 :25 AM CDT POCT GLUCOSE DEVICE Routine 03/05/2025 3 :08 AM CDT EGFR Timed 03/05/2025 12:28 AM CDT RENAL FUNCTION PANEL Timed 03/05/2025 12:28 AM CDT CBC WITHOUT DIFFERENTIAL Timed 03/05/2025 12:28 AM CDT POCT GLUCOSE DEVICE Routine 03/05/2025 1 2:27 AM CDT POCT GLUCOSE DEVICE Routine 03/04/2025 8 :19 PM CDT POCT GLUCOSE DEVICE Routine 03/04/2025 5 :28 PM CDT POCT GLUCOSE DEVICE Routine 03/04/2025 1 2:57 PM CDT POCT GLUCOSE DEVICE Routine 03/04/2025 8 :48 AM CDT POCT GLUCOSE DEVICE Routine 03/04/2025 4 :19 AM CDT POCT GLUCOSE DEVICE Routine 03/03/2025 1 1:57 PM CDT EGFR Timed 03/03/2025 9:00 PM CDT RENAL FUNCTION PANEL Timed 03/03/2025 9:00 PM CDT CBC WITHOUT DIFFERENTIAL Timed 03/03/2025 9:00 PM CDT POCT GLUCOSE DEVICE Routine 03/03/2025 8 :20 PM CDT POCT GLUCOSE DEVICE Routine 03/03/2025 4 :53 PM CDT POCT GLUCOSE DEVICE Routine 03/03/2025 3 :03 PM CDT POCT GLUCOSE DEVICE Routine 03/03/2025 1 2:19 PM CDT POCT GLUCOSE DEVICE Routine 03/03/2025 7 :29 AM CDT EGFR Timed 03/02/2025 10:12 PM CDT RENAL FUNCTION PANEL Timed 03/02/2025 10:12 PM CDT CBC WITHOUT DIFFERENTIAL Timed 03/02/2025 10:12 PM CDT POCT GLUCOSE DEVICE Routine 03/02/2025 8 :34 PM CDT POCT GLUCOSE DEVICE Routine 03/02/2025 4 :53 PM CDT POCT GLUCOSE DEVICE Routine 03/02/2025 1 2:16 PM CDT POCT GLUCOSE DEVICE Routine 03/02/2025 1 1:18 AM CDT POCT GLUCOSE DEVICE Routine 03/02/2025 7 :40 AM CDT POTASSIUM, WHOLE BLOOD STAT 12:59 AM CDT EGFR Timed 03/01/2025 10:01 PM CDT RENAL FUNCTION PANEL Timed 03/01/2025 10:01 PM CDT CBC WITHOUT DIFFERENTIAL Timed 03/01/2025 10:01 PM CDT POCT GLUCOSE DEVICE Routine 03/01/2025 8 :58 PM CDT ECG 12-LEAD STAT 03/01/2025 6:21 PM CDT POTASSIUM, WHOLE BLOOD STAT 4:35 PM CDT POCT GLUCOSE DEVICE Routine 03/01/2025 3 :47 PM CDT EGFR Timed 03/01/2025 1:48 PM CDT RENAL FUNCTION PANEL Timed 03/01/2025 1:48 PM CDT POCT GLUCOSE DEVICE Routine 03/01/2025 1 1:32 AM CDT POCT GLUCOSE DEVICE Routine 03/01/2025 7 :35 AM CDT EGFR Timed 02/28/2025 9:13 PM CDT RENAL FUNCTION PANEL Timed 02/28/2025 9:13 PM CDT CBC WITHOUT DIFFERENTIAL Timed 02/28/2025 9:13 PM CDT POCT GLUCOSE DEVICE Routine 02/28/2025 7 :38 PM CDT POCT GLUCOSE DEVICE Routine 02/28/2025 5 :54 PM CDT EGFR Timed 02/27/2025 9:30 PM CDT RENAL FUNCTION PANEL Timed 02/27/2025 9:30 PM CDT CBC WITHOUT DIFFERENTIAL Timed 02/27/2025 9:30 PM CDT EGFR Timed 02/26/2025 8:35 PM CDT RENAL FUNCTION PANEL Timed 02/26/2025 8:35 PM CDT CBC WITHOUT DIFFERENTIAL Timed 02/26/2025 8:35 PM CDT EGFR Timed 02/25/2025 8:58 PM CDT RENAL FUNCTION PANEL Timed 02/25/2025 8:58 PM CDT CBC WITHOUT DIFFERENTIAL Timed 02/25/2025 8:58 PM CDT EGFR Timed 02/24/2025 8:53 PM CDT RENAL FUNCTION PANEL Timed 02/24/2025 8:53 PM CDT CBC WITHOUT DIFFERENTIAL Timed 02/24/2025 8:53 PM CDT POTASSIUM, WHOLE BLOOD STAT 3:23 AM CDT from Last 3 Months Results * POCT glucose (05/16/2025 2:21 AM CDT) Glucose, POC 101 70 - 199 mg/dL Blood 05/16/2025 2:21 AM CDT 05/16/2025 2:21 AM CDT Rita Hernandez MD LAB POCT ORDERABLES - DE VICE Final Result Performing Organization Address City/[facility]/ZIP Co de Phone Number [facility] [place] [address] * POCT glucose (05/16/2025 12:39 AM CDT) Glucose, POC 105 70 - 199 mg/dL Blood 05/16/2025 12:3 9 AM CDT 05/16/2025 12:39 AM CDT Rita Hernandez MD LAB POCT ORDERABLES - DE VICE Final Result [facility] [place] [address] * POCT glucose (05/15/2025 9:19 PM CDT) Glucose, POC 105 70 - 199 mg/dL Blood 05/15/2025 9:19 PM CDT 05/15/2025 9:19 PM CDT us India Shook MD LAB POCT ORDERABLES - DEV ICE Final Result Performing Organization Address [facility] [[email or web address]] Co de Phone Number [facility] [place] [address] * (ABNORMAL) T-helper cells (CD4) count (05/15/2025 9:14 PM CDT) CD4 pct 29(L) 31 - 64 % CD4 Absolute 707 365 - 1,294 cells/mcL [facility] Blood 05/15/2025 9:14 PM CDT 05/15/2025 9:28 PM CDT us Russell Reeves MD LAB BLOOD ORDERABLES Fi nal Result Performing Organization Address [facility] [[email or web address]] Co de Phone Number 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 No evidence of emphysematous pyelitis or emphysematous pyelonephritis. Dictated by: Kan Junior M.D. ADDENDUM - This addendum is being placed on the report for a non-time dependent finding on a patient who is admitted to the hospital (2C). This patient does not have emphysematous cystitis. Patient likely has severe cystitis with intraluminal (not an intramural) air secondary to urethral catheterization. These findings were communicated to Dr. Pepe Sanchez by Kan Junior M.D. at 05/16/2025 6:36 AM. The radiology attending physician has personally reviewed this study, and had reviewed and/or edited this written report and agrees with it. Electronically signed by: Higinio Braga M.D. Narrative 05/16/2025 6:39 AM CDT EXAMINATION: Computed tomography of the abdomen and pelvis without intravenous contrast HISTORY: Abdominal pain, right lower quadrant. TECHNIQUE: Transaxial computed tomographic images of the abdomen and pelvis were obtained without intravenous contrast according to the standard protocol. COMPARISON: 09/03/2024. FINDINGS: No acute process in the partially imaged lung bases. Heart size normal. There is no pericardial effusion. Noncontrast appearance the liver, spleen, pancreas, adrenal glands are normal. Gallbladder stones/sludge without evidence of acute cholecystitis. Left nephrectomy. Right kidney is normal. There is a large exophytic simple right renal cyst with peripheral calcifications. No hydronephrosis. Marked bladder wall thickening. Marked bladder wall thickening. Though there is a Watts catheter. There appears to be gas within the bladder wall (series 2, image 173) with locules of gas in the superior bladder dome wall (series 2, image 167) no extravesicular gas. No obvious gas within the right collecting system. No bowel obstruction. Space of Retzius stranding. Suture material in the right lower quadrant, likely for an appendectomy. No organized drainable fluid collection. Fiducial markers in the prostate. L3-L4 fusion. Subchondral/endplate degenerative change. No acute fracture. No suspicious osseous lesion. Procedure Note Higinio Braga MD - 05/16/2025 EXAMINATION: Computed tomography of the abdomen and pelvis without intravenous contrast HISTORY: Abdominal pain, right lower quadrant. TECHNIQUE: Transaxial computed tomographic images of the abdomen and pelvis were obtained without intravenous contrast according to the standard protocol. COMPARISON: 09/03/2024. FINDINGS: No acute process in the partially imaged lung bases. Heart size normal. There is no pericardial effusion. Noncontrast appearance the liver, spleen, pancreas, adrenal glands are normal. Gallbladder stones/sludge without evidence of acute cholecystitis. Left nephrectomy. Right kidney is normal. There is a large exophytic simple right renal cyst with peripheral calcifications. No hydronephrosis. Marked bladder wall thickening. Marked bladder wall thickening. Though there is a Watts catheter. There appears to be gas within the bladder wall (series 2, image 173) with locules of gas in the superior bladder dome wall (series 2, image 167) no extravesicular gas. No obvious gas within the right collecting system. No bowel obstruction. Space of Retzius stranding. Suture material in the right lower quadrant, likely for an appendectomy. No organized drainable fluid collection. Fiducial markers in the prostate. L3-L4 fusion. Subchondral/endplate degenerative change. No acute fracture. No suspicious osseous lesion. 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 No evidence of emphysematous pyelitis or emphysematous pyelonephritis. Dictated by: Kan Junior M.D. ADDENDUM - This addendum is being placed on the report for a non-time dependent finding on a patient who is admitted to the hospital (2C). This patient does not have emphysematous cystitis. Patient likely has severe cystitis with intraluminal (not an intramural) air secondary to urethral catheterization. These findings were communicated to Dr. Pepe Sanchez by Kan Junior M.D. at 05/16/2025 6:36 AM. The radiology attending physician has personally reviewed this study, and had reviewed and/or edited this written report and agrees with it. Electronically signed by: Higinio Braga M.D. us Russell Reeves MD IMG CT PROCEDURES Final Result * POCT glucose (05/15/2025 8:10 PM CDT) Glucose, POC 125 70 - 199 mg/dL Blood 05/15/2025 8:10 PM CDT 05/15/2025 8:10 PM CDT us India Shook MD LAB POCT ORDERABLES - DEV ICE Final Result [facility] Department [place] [address] * (ABNORMAL) Aerobic and anaerobic culture and gram stain Wound Abdominal (05/15/2025 6:40 PM CDT) Direct Specimen Exam Stain: Moderate polymorphonuclear leukocytes seen. Moderate Gram Positive Cocci Report Final Report: Moderate Staphylococcus aureus Methicillin resistant (MRSA) by penicillin binding protein 2a (PBP2a) testing. Rare Mixed microorganisms. (.) [facility] Organism STAPHYLOCOCCUS AUREUS [facility] Organism MIXED MICROORGANISMS. [facility] Wound (Abdominal) 05/15/2025 6:40 PM CDT 05/15/2025 6:49 PM CDT Narrative [facility] - 05/19/2025 9:46 AM CDT Specimen received on an ESwab. Testing performed by [facility] ([phone]) Specimens submitted from normally sterile body sites will have all bacterial morphotypes identified. Specimens that contain grossly mixed elise and/or are from body sites that are not normally sterile will be examined for Staphylococcus aureus, Pseudomonas aeruginosa, beta-hemolytic strep, vancomycin-resistant Enterococcus, Bacteroides, Parabacteroides, Clostridium perfringens and fungus. If any of these are isolated, the organism will be reported. Current interpretive data was last revised on 2019. Organism Antibiotic Method Susceptibility Staphylococcus aureus Vancomycin INTERPRETATION Susceptible Staphylococcus aureus Ceftaroline INTERPRETATION Susceptible Staphylococcus aureus Trimethoprim with Sulfamethoxazole INTERPRETATION Susceptible Staphylococcus aureus Linezolid INTERPRETATION Susceptible Staphylococcus aureus Doxycycline INTERPRETATION Intermediate Staphylococcus aureus Clindamycin INTERPRETATION Susceptible Staphylococcus aureus Erythromycin INTERPRETATION Susceptible Staphylococcus aureus Oxacillin INTERPRETATION Resistant Staphylococcus aureus Cefazolin INTERPRETATION Resistant Staphylococcus aureus Ceftriaxone INTERPRETATION Resistant Russell Reeves MD LAB MICROBIOLOGY - [facility] ORDERABLES Final Result [facility] Department [place] [address] * Blood culture Blood (05/15/2025 6:40 PM CDT) Report Final Report: No growth Blood 05/15/2025 6:40 PM CDT 05/15/2025 6:50 PM CDT Narrative [facility] - 05/20/2025 7:00 AM CDT From a different site than #1. Collection->Peripheral 1. Blood cultures are incubated for 4 days on a continuously monitored blood culture system. The first report of a negative culture is issued within 24 hours of receipt of the specimen in the laboratory. 2. Positive culture results are reported as soon as they are detected. 3. The most important factor for detection of microbes in the setting of bloodstream infection is the volume of blood submitted for culture. Failure to collect an optimal blood volume can result in false negative blood cultures. 4. For pediatric patients, the recommended blood volume to collect follows a weight based strategy. See the electronic test catalog for collection instructions. 5. For positive blood cultures, a rapid molecular test may be performed for organism identification using the naa ePlex blood culture identification panel for gram positive (BCID-GP) and gram negative (BCID-GN) organisms. This nucleic acid amplification test detects microbial DNA in positive blood culture broth. This assay has been cleared by the [place] Food and Drug Administration and its performance characteristics have been verified by the [facility]. For questions about this culture, contact the Microbiology Laboratory at [phone]. Interpretive data was last revised on 24. Russell Reeves MD LAB MICROBIOLOGY - [facility] ORDERABLES Final Result [facility] [place] [address] * Blood culture Blood (05/15/2025 6:35 PM CDT) Report Final Report: No growth Blood 05/15/2025 6:35 PM CDT 05/15/2025 6:50 PM CDT [facility] - 05/20/2025 7:00 AM CDT Collection->Peripheral 1. Blood cultures are incubated for 4 days on a continuously monitored blood culture system. The first report of a negative culture is issued within 24 hours of receipt of the specimen in the laboratory. 2. Positive culture results are reported as soon as they are detected. 3. The most important factor for detection of microbes in the setting of bloodstream infection is the volume of blood submitted for culture. Failure to collect an optimal blood volume can result in false negative blood cultures. 4. For pediatric patients, the recommended blood volume to collect follows a weight based strategy. See the electronic test catalog for collection instructions. 5. For positive blood cultures, a rapid molecular test may be performed for organism identification using the ana ePlex blood culture identification panel for gram positive (BCID-GP) and gram negative (BCID-GN) organisms. This nucleic acid amplification test detects microbial DNA in positive blood culture broth. This assay has been cleared by the [place] Food and Drug Administration and its performance characteristics have been verified by the [facility]. For questions about this culture, contact the Microbiology Laboratory at [phone]. Interpretive data was last revised on 24. us Russell Reeves MD LAB MICROBIOLOGY - [facility] ORDERABLES Final Result [facility] [place] [address] * (ABNORMAL) eGFR (05/15/2025 6:11 PM CDT) eGFR 11(L) >=60 mL/min/1. 73 m2 Comment: Interpretive Data Reference Interval Normal >/= 90 mL/min/1.73m2 Mildly decreased* 60 - 89 mL/min/1.73m2 Mildly to moderately decreased 45 - 59 mL/min/1.73m2 Moderately to severely decreased 30 - 44 mL/min/1.73m2 Severely decreased 15 - 29 mL/min/1.73m2 Kidney Failure < 15 mL/min/1.73m2 *Relative to young adult level Estimated glomerular filtration rate is determined by the 2020 CKD-EPI equation recommended by the National Kidney Foundation (A Unifying Approach to GFR Estimation: Recommendations of the NKF-ASK Task Force on Reassessing the Inclusion of Race in Diagnosing Kidney Disease, JASN 202). The CKD-EPI equation should not be used for patients with unstable renal function and has not been validated in children and those over 70. Current interpretive data was last reviewed 2021. Blood 05/15/2025 6:11 PM CDT 05/15/2025 6:18 PM CDT us India Shook MD LAB BLOOD ORDERABLES Deysi medley Result [facility] [place] [address] * (ABNORMAL) Differential, auto (05/15/2025 6:11 PM CDT) Neutrophil abs 4.62 1.50 - 6.50 K/cumm Imm gran abs 0.02 0.00 - 0.10 K/cumm [facility] Lymphocyte abs 2.67 0.80 - 3.30 K/cumm [facility] Monocyte abs 0.90(H) 0.20 - 0.80 K/cumm [facility] Eosinophil abs 0.26 0.00 - 0.50 K/cumm [facility] Basophil abs 0.07 0.00 - 0.10 K/cumm [facility] Neutrophil pct 54.2 % [facility] Comment: Interpretive Data Percent cell count reference ranges are not reported, since discordance with absolute values may lead to misinterpretation of CBC data. Current Interpretive Data was last revised on 2018. Imm gran pct 0.2 % [facility] Comment: Interpretive Data Percent cell count reference ranges are not reported, since discordance with absolute values may lead to misinterpretation of CBC data. Current Interpretive Data was last revised on 2018. Lymphocyte pct 31.3 % [facility] Comment: Interpretive Data Percent cell count reference ranges are not reported, since discordance with absolute values may lead to misinterpretation of CBC data. Current Interpretive Data was last revised on 2018. Monocyte pct 10.5 % [facility] Comment: Interpretive Data Percent cell count reference ranges are not reported, since discordance with absolute values may lead to misinterpretation of CBC data. Current Interpretive Data was last revised on 2018. Eosinophil pct 3.0 % [facility] Comment: Interpretive Data Percent cell count reference ranges are not reported, since discordance with absolute values may lead to misinterpretation of CBC data. Current Interpretive Data was last revised on 2018. Basophil pct 0.8 % [facility] Comment: Interpretive Data Percent cell count reference ranges are not reported, since discordance with absolute values may lead to misinterpretation of CBC data. Current Interpretive Data was last revised on 2018. Blood 05/15/2025 6:11 PM CDT 05/15/2025 6:18 PM CDT India Shook MD LAB BLOOD ORDERABLES Deysi l Result Performing Organization Address [facility] [[email or web address]] Co de Phone Number [facility] [place] [address] * (ABNORMAL) CBC with auto differential (05/15/2025 6:11 PM CDT) WBC 8.54 3.80 - 9.90 K/cumm Hgb 9.6(L) 13.0 - 17.5 g/dL [facility] Hct 31.1(L) 38.9 - 50.3 % [facility] Plt 271 150 - 400 K/cumm [facility] MPV 8.3(L) 9.1 - 12.3 fL [facility] RBC 3.76(L) 4.30 - 5.80 M/cumm [facility] MCV 82.7 81.3 - 96.4 fL [facility] MCH 25.5(L) 27.1 - 33.3 pg [facility] MCHC 30.9(L) 32.3 - 35.7 g/dL [facility] RDW CV 17.0(H) 11.1 - 14.9 % [facility] RDW SD 51.8(H) 35.7 - 48.1 fL [facility] NRBC abs 0.00 0.00 - 0.01 K/cumm [facility] Blood 05/15/2025 6:11 PM CDT 05/15/2025 6:18 PM CDT India Shook MD LAB BLOOD ORDERABLES Deysi l Result Performing Organization Address [facility]/ZIP Co de Phone Number [facility] [place] [address] * aPTT (05/15/2025 6:11 PM CDT) aPTT 36 28 - 38 sec Comment: Interpretive Data Heparin therapeutic range: 66.0 - 100.0 seconds. Range based on correlation with therapeutic heparin activity range of 0.3 - 0.7 Units/mL. Current interpretive data was last revised on 2023. Blood 05/15/2025 6:11 PM CDT 05/15/2025 6:22 PM CDT India Shook MD LAB BLOOD ORDERABLES Deysi l Result Performing Organization Address [facility] [place] [address] * Protime-INR (05/15/2025 6:11 PM CDT) Pathologist [facility] PT 12.2 9.7 - 13.0 sec INR 1.13 0.90 - 1.20 [facility] Comment: Interpretive data Oral anticoagulant therapeutic ranges: Venous thromboembolism prophylaxis or treatment: 2.0-3.0 CARDIOLOGY Standard range: 2.0-3.0 High-intensity range: 2.5-3.5 Refer to indication-specific guidelines for appropriate target ranges for prosthetic heart valve replacement. Current interpretive data was last revised on 2019. Blood 05/15/2025 6:11 PM CDT 05/15/2025 6:22 PM CDT India Shook MD LAB BLOOD ORDERABLES Deysi l Result Performing Organization Address [facility] [[email or web address]] Co de Phone Number [facility] [place] [address] * Type and screen (05/15/2025 6:11 PM CDT) Kaye, indirect Negative ABO Rh O Positive [facility] Blood 05/15/2025 6:11 PM CDT 05/15/2025 6:20 PM CDT Narrative [facility] - 05/15/2025 7:08 PM CDT Has the patient had Daratumumab or Isatuximab in the past 6 months?->Unknown India Shook MD LAB BLOOD BANK TEST ORDER ADDIE Final Result [facility] [place] [address] * (ABNORMAL) Comprehensive metabolic panel (05/15/2025 6:11 PM CDT) Sodium 143 135 - 145 mmol/L Potassium, pl 4.5 3.3 - 4.9 mmol/L [facility] Chloride 107 97 - 110 mmol/L [facility] CO2 23 22 - 32 mmol/L [facility] Anion gap 13 2 - 15 mmol/L [facility] BUN 52(H) 6 - 25 mg/dL [facility] Creatinine 5.29(H) 0.80 - 1.30 mg/dL [facility] Glucose 85 70 - 199 mg/dL [facility] Comment: Interpretive Data Fasting glucose >/= 126 mg/dl is diagnostic for diabetes. Fasting is defined as no caloric intake for at least 8 hours. Fasting glucose between 100 mg/dl to 125 mg/dl is diagnostic of prediabetes. In a patient with classic symptoms of hyperglycemia or hyperglycemic crisis, a random glucose >/= 200 mg/dl is diagnostic for diabetes. In the absence of unequivocal hyperglycemia, results should be confirmed by repeat testing. The classification and Diagnosis of Diabetes Diabetes Care 202; 46: S19-S40. Current interpretive data was last revised 2022. Calcium 9.4 8.5 - 10.3 mg/dL [facility] Bilirubin, total 0.2 0.1 - 1.2 mg/dL [facility] Comment:Reviewed Protein, pl 7.9 6.5 - 8.5 g/dL [facility] Albumin 4.2 3.5 - 5.0 g/dL [facility] Alk phos 60 40 - 130 Units/L [facility] ALT 15 7 - 55 Units/L [facility] AST 18 10 - 50 Units/L [facility] Blood 05/15/2025 6:11 PM CDT 05/15/2025 6:18 PM CDT India Shook MD LAB BLOOD ORDERABLES Deysi l Result Performing Organization Address [facility]/ZIP Co de Phone Number [facility] [place] [address] * (ABNORMAL) POCT glucose (05/15/2025 3:54 PM CDT) Glucose, POC 214(H) 70 - 199 mg/dL Blood 05/15/2025 3:54 PM CDT 05/15/2025 3:54 PM CDT Notinfile Unknown LAB POCT ORDERABLES - DEVICE F inal Result Performing Organization Address [facility] de Phone Number [facility] [place] [address] * N. gonorrhoeae/C. trachomatis Amplification Urine (04/25/2025 10:32 AM CDT) Pathologist [facility] C. trachomatis Not Detected [facility] N. gonorrhoeae Not Detected [facility] Comment: Interpretive Data This assay detects Chlamydia trachomatis and Neisseria gonorrhoeae by nucleic acid amplification testing (NAAT). This assay has been cleared by the [place] Food and Drug administration. The performance characteristics of this test have been verified by the [facility] Molecular Infectious Disease laboratory. The performance characteristics of this test have not been evaluated in individuals less than 14 years of age. Current Interpretive Data was last revised on 2023. Urine (None) 04/25/2025 10:3 2 AM CDT 04/25/2025 5:09 PM CDT Juni Ramos MD LAB MICROBIOLOGY - GENE RAL ORDERABLES Final Result [facility] [place] [address] [facility] * T-SPOT.TB Blood (04/25/2025 10:32 AM CDT) [facility] T-SPOT.TB Negative SeeBelow Comment: Normal Value: Negative A negative test result does not exclude the possibility of exposure to or infection with Mycobacterium tuberculosis (M. tuberculosis). Patients with recent exposure to TB infected individuals exhibiting a negative T-SPOT.TB result should be considered for retesting within 6 weeks or if other relevant clinical symptoms indicate. Results from T-SPOT.TB testing must be used in conjunction with each individual's epidemiological history, current medical status, and results of other diagnostic evaluations. The T-SPOT.TB test is qualitative and results are reported as positive, borderline or negative, given that the test controls perform as expected. In line with the Centers for Disease Control and Prevention's 2010 recommendation to report quantitative measurements alongside the qualitative result, the laboratory provides spot counts for informational purposes only. The T-SPOT.TB test should not be interpreted as a quantitative test. T-SPOT.TB Panel A Spot Count 1 [facility] T-SPOT.TB Panel B Spot Count 3 [facility] T-SPOT.TB Negative Control Passed [facility] T-SPOT.TB Positive Control Passed [facility] Comment: Test Performed at: [facility], [employer] [address] [place] [id number] KRISTEN BOYCE,PHD Blood 04/25/2025 10:3 2 AM CDT 04/25/2025 4:56 PM CDT Juni Ramos MD LAB MICROBIOLOGY - GENE RAL ORDERABLES Final Result [facility] Department [place] [address] * (ABNORMAL) eGFR (04/25/2025 10:32 AM CDT) [facility] eGFR 10(L) >=60 mL/min/1. 73 m2 Comment: Interpretive Data Reference Interval Normal >/= 90 mL/min/1.73m2 Mildly decreased* 60 - 89 mL/min/1.73m2 Mildly to moderately decreased 45 - 59 mL/min/1.73m2 Moderately to severely decreased 30 - 44 mL/min/1.73m2 Severely decreased 15 - 29 mL/min/1.73m2 Kidney Failure < 15 mL/min/1.73m2 *Relative to young adult level Estimated glomerular filtration rate is determined by the 2020 CKD-EPI equation recommended by the National Kidney Foundation (A Unifying Approach to GFR Estimation: Recommendations of the NKF-ASK Task Force on Reassessing the Inclusion of Race in Diagnosing Kidney Disease, JASN 2020). The CKD-EPI equation should not be used for patients with unstable renal function and has not been validated in children and those over 70. Current interpretive data was last reviewed 2021. Blood 04/25/2025 10:3 2 AM CDT 04/25/2025 4:56 PM CDT us Juni Ramos MD LAB BLOOD ORDERABLES Fi nal Result [facility] [place] [address] * Differential, auto (04/25/2025 10:32 AM CDT) Pathologist [facility] Neutrophil abs 3.38 1.50 - 6.50 K/cumm Imm gran abs 0.01 0.00 - 0.10 K/cumm [facility] Lymphocyte abs 2.18 0.80 - 3.30 K/cumm [facility] Monocyte abs 0.65 0.20 - 0.80 K/cumm [facility] Eosinophil abs 0.23 0.00 - 0.50 K/cumm [facility] Basophil abs 0.07 0.00 - 0.10 K/cumm [facility] Neutrophil pct 51.8 % [facility] Comment: Interpretive Data Percent cell count reference ranges are not reported, since discordance with absolute values may lead to misinterpretation of CBC data. Current Interpretive Data was last revised on 2018. Imm gran pct 0.2 % [facility] Comment: Interpretive Data Percent cell count reference ranges are not reported, since discordance with absolute values may lead to misinterpretation of CBC data. Current Interpretive Data was last revised on 2018. Lymphocyte pct 33.4 % [facility] Comment: Interpretive Data Percent cell count reference ranges are not reported, since discordance with absolute values may lead to misinterpretation of CBC data. Current Interpretive Data was last revised on 2018. Monocyte pct 10.0 % [facility] Comment: Interpretive Data Percent cell count reference ranges are not reported, since discordance with absolute values may lead to misinterpretation of CBC data. Current Interpretive Data was last revised on 2018. Eosinophil pct 3.5 % [facility] Comment: Interpretive Data Percent cell count reference ranges are not reported, since discordance with absolute values may lead to misinterpretation of CBC data. Current Interpretive Data was last revised on 2018. Basophil pct 1.1 % [facility] Comment: Interpretive Data Percent cell count reference ranges are not reported, since discordance with absolute values may lead to misinterpretation of CBC data. Current Interpretive Data was last revised on 2018. Blood 04/25/2025 10:3 2 AM CDT 04/25/2025 4:45 PM CDT Juni Ramos MD LAB BLOOD ORDERABLES Fi nal Result [facility] [place] [address] * (ABNORMAL) Urinalysis reflex to microscopic (04/25/2025 10:32 AM CDT) Color, ur Yellow Yellow Clarity, ur Cloudy(A) Clear [facility] Specific gravity, ur 1.017 1.003 - 1.030 [facility] pH, urine 6.0 [facility] Comment: Interpretive Data U rine pH is affected by diet, medications, systemic acid-base disturbances, and renal tubular function. pH may affect urinary stone formation. For example, urine pH below 6.0 may help reduce the tendency for calcium phosphate stones and pH greater than 6.0 may reduce the tendency for uric acid stone formation. Source: [facility] Current Interpretive Data was last revised on 2017 Protein, ur ql 2+(A) Negative [facility] Glucose, ur ql Negative Negative [facility] Ketones, ur Negative Negative [facility] Bilirubin, ur Negative Negative [facility] Blood, ur 1+(A) Negative [facility] Urobilinogen, ur <2.0 <2.0 mg/dL [facility] Nitrite, ur Negative Negative [facility] Leukocyte esterase, ur 3+(A) Negative [facility] UA reflex comment Reflex to microscopic UA will be performed. [facility] Urine 04/25/2025 10:3 2 AM CDT 04/25/2025 4:45 PM CDT Juni Ramos MD LAB URINE ORDERABLES Count includes the [facility] Result [facility] [place] [address] * (ABNORMAL) CBC with auto differential (04/25/2025 10:32 AM CDT) WBC 6.52 3.80 - 9.90 K/cumm Hgb 9.5(L) 13.0 - 17.5 g/dL [facility] Hct 32.0(L) 38.9 - 50.3 % [facility] Plt 287 150 - 400 K/cumm [facility] MPV 8.5(L) 9.1 - 12.3 fL [facility] RBC 3.78(L) 4.30 - 5.80 M/cumm [facility] MCV 84.7 81.3 - 96.4 fL [facility] MCH 25.1(L) 27.1 - 33.3 pg [facility] MCHC 29.7(L) 32.3 - 35.7 g/dL [facility] RDW CV 18.2(H) 11.1 - 14.9 % [facility] RDW SD 55.8(H) 35.7 - 48.1 fL [facility] NRBC abs 0.00 0.00 - 0.01 K/cumm [facility] Blood 04/25/2025 10:3 2 AM CDT 04/25/2025 4:45 PM CDT Juni Ramos MD LAB BLOOD ORDERABLES Fi nal Result Performing Organization Address City/[facility] [[email or web address]] Co de Phone Number [facility] [place] [address] * Hepatitis C antibody Blood (04/25/2025 10:32 AM CDT) [facility] Hep C Ab Nonreactive Nonreactive Comment:Antibodies to HCV no t detected. Does NOT exclude the possibility of recent exposure to HCV. Current interpretive data was last revised on 22 Blood 04/25/2025 10:3 2 AM CDT 04/25/2025 4:45 PM CDT Juni Ramos MD LAB MICROBIOLOGY - GENE RAL ORDERABLES Final Result Performing Organization Address [facility] de Phone Number [facility] [place] [address] * HIV-1 RNA PCR, quantitative Blood (04/25/2025 10:32 AM CDT) [facility] HIV-1 RNA Not Detected [facility] Comment: The quantifiable range of this assay is 20 copies/mL to 10,000,000 copies/mL (1.30 log copies/mL to 7.00 log copies/mL). Testing was performed by the ANA 6800 HIV-1 Test([employer] Testing performed at [facility] Current Interpretive Data was last revised on 2021. Blood 04/25/2025 10:3 2 AM CDT 04/25/2025 5:09 PM CDT Juni Ramos MD LAB MICROBIOLOGY - GENE RAL ORDERABLES Final Result Performing Organization Address [facility] [[email or web address]] Co de Phone Number [facility] [place] [address] BJ * RPR Blood (04/25/2025 10:32 AM CDT) Pathologist [facility] RPR Nonreactive Nonreactive Blood 04/25/2025 10:3 2 AM CDT 04/25/2025 4:45 PM CDT Juni Ramos MD LAB MICROBIOLOGY - GENE RAL ORDERABLES Final Result Performing Organization Address [facility] Phone Number [facility] [place] [address] * (ABNORMAL) Urinalysis, microscopic only (04/25/2025 10:32 AM CDT) Pathologist [facility] WBC, ur >50(A) 0 - 5 /HPF RBC, ur 21-50(A) 0 - 2 /HPF [facility] Epithelial cells, squamous, ur 1-5 0 - 5 /HPF [facility] Bacteria, ur 2+(A) [facility] Yeast, ur TRACE [facility] Mucous, ur Present(A) [facility] Hyaline casts, ur 1-5 0 - 10 /LPF [facility] Urine 04/25/2025 10:3 2 AM CDT 04/25/2025 4:45 PM CDT Juni Ramos MD LAB URINE ORDERABLES Fi nal Result Performing Organization Address [facility] [[email or web address]] Co de Phone Number [facility] [place] [address] * T-helper cells (CD4) count (04/25/2025 10:32 AM CDT) Pathologist [facility] CD4 pct 33 31 - 64 % CD4 Absolute 697 365 - 1,294 cells/mcL [facility] Blood 04/25/2025 10:3 2 AM CDT 04/25/2025 4:45 PM CDT Juni Ramos MD LAB BLOOD ORDERABLES Fi nal Result Performing Organization Address [facility] de Phone Number [facility] [place] [address] * (ABNORMAL) Hemoglobin A1c (04/25/2025 10:32 AM CDT) Hgb A1C 6.2(H) 4.0 - 5.6 % Estimated Average Glucose 131 mg/dL [facility] Comment: The ADA recommends reporting an estimated Average Glucose (eAG) with all Hemoglobin A1c results using the equation derived from a study of 507 normal and diabetic adults. Minority populations were underrepresented and children were not included. (Diabetes Care 2020; 43(S1): S66-S76). The eAG is not equivalent to a fasting glucose. Blood 04/25/2025 10:3 2 AM CDT 04/25/2025 4:45 PM CDT Juni Ramos MD LAB BLOOD ORDERABLES Fi nal Result Performing Organization Address [facility] de Phone Number [facility] [place] [address] * (ABNORMAL) Lipid panel (04/25/2025 10:32 AM CDT) Cholesterol 148 30 - 199 mg/dL Comment: Interpretive Data Ages < or = 19 years Acceptable: <170 mg/dL Borderline high: 170-199 mg/dL High: >or= 200 mg/dL Ages > or = 20 years Desirable: <200 mg/dL Borderline high: 200-239 mg/dL High: >or= 240 mg/dL Literature References: 1. Expert Panel on Integrated Guidelines for Cardiovascular Health and Risk Reduction in Children and Adolescents. Pediatrics 2011;128:S213 2. NCEP Expert Panel. Circulation 2004;110:227 Current Interpretive Data was last revised on 2018. Triglycerides 103 <=149 mg/dL [facility] Comment: Interpretive Data Ages < or = 9 years Acceptable: <75 mg/dL Borderline high: 75-99 mg/dL High: >or= 100 mg/dL Ages 10 to 20 years Acceptable: <90 mg/dL Borderline high: 90-129 mg/dL High: >or= 130 mg/dL Ages > or = 20 years Desirable: <150 mg/dL Borderline high: 150-199 mg/dL High: 200-499 mg/dL Very high: >or= 499 mg/dL Literature References: 1. Expert Panel on Integrated Guidelines for Cardiovascular Health and Risk Reduction in Children and Adolescents. Pediatrics 2011;128:S213 2. NCEP Expert Panel. Circulation 2004;110:227 Current Interpretive Data was last revised on 2018. HDL 35(L) >=40 mg/dL [facility] Comment: Interpretive Data Ages < or = 19 years Acceptable: >45 mg/dL Borderline low: 40-45 mg/dL Low: <40 mg/dL Ages > or = 20 years Desirable: >or= 60 mg/dL Low: <40 mg/dL Literature References: 1. Expert Panel on Integrated Guidelines for Cardiovascular Health and Risk Reduction in Children and Adolescents. Pediatrics 2011;128:S213 2. NCEP Expert Panel. Circulation 2004;110:227 Current Interpretive Data was last revised on 2018. LDL, calculated 94 <=129 mg/dL [facility] Comment: Interpretive Data Ages < or = 19 years Acceptable: <110 mg/dL Borderline high: 110-129 mg/dL High: >or= 130 mg/dL Ages > or = 20 years Optimal: <100 mg/dL Near optimal: 100-129 mg/dL Borderline high: 130-159 mg/dL High: >160 mg/dL Calculated using the Patrick LDL-C estimating equation. This equation was implemented on 2024. Prior to this date LDL-C was estimated using the Friedewald equation. Literature References: 1. Expert Panel on Integrated Guidelines for Cardiovascular Health and Risk Reduction in Children and Adolescents. Pediatrics 2011;128:S213 2. NCEP Expert Panel. Circulation 2004;110:227 3. Patrick Mckenzie et al. SONA Cardiol. 2019February 17;5(5):540-548. doi: 10.1001/jamacardio.2020.0013 Current Interpretive Data was last revised on 2024. Non-HDL Cholesterol 113 mg/dL [facility] Comment: Interpretive Data Ages < or = 19 years Acceptable: <120 mg/dL Borderline high: 120-144 mg/dL High: >145 mg/dL Ages > or = 20 years When triglycerides are >200 mg/dL, Non-HDL cholesterol is a secondary target of therapy with treatment goals that are 30 mg/dL greater than the LDL cholesterol target. Literature References: 1. Expert Panel on Integrated Guidelines for Cardiovascular Health and Risk Reduction in Children and Adolescents. Pediatrics 2011;128:S213 2. NCEP Expert Panel. Circulation 2004;110:227 Current Interpretive Data was last revised on 2018. Chol/HDL ratio 4 [facility] Blood 04/25/2025 10:3 2 AM CDT 04/25/2025 4:45 PM CDT Juni Ramos MD LAB BLOOD ORDERABLES Fi nal Result [facility] [place] [address] * (ABNORMAL) Comprehensive metabolic panel (04/25/2025 10:32 AM CDT) Sodium 144 135 - 145 mmol/L Potassium, pl 4.3 3.3 - 4.9 mmol/L [facility] Chloride 102 97 - 110 mmol/L [facility] CO2 26 22 - 32 mmol/L [facility] Anion gap 16(H) 2 - 15 mmol/L [facility] BUN 55(H) 6 - 25 mg/dL [facility] Creatinine 5.71(H) 0.80 - 1.30 mg/dL [facility] Glucose 57(L) 70 - 199 mg/dL [facility] Comment: Interpretive Data Fasting glucose >/= 126 mg/dl is diagnostic for diabetes. Fasting is defined as no caloric intake for at least 8 hours. Fasting glucose between 100 mg/dl to 125 mg/dl is diagnostic of prediabetes. In a patient with classic symptoms of hyperglycemia or hyperglycemic crisis, a random glucose >/= 200 mg/dl is diagnostic for diabetes. In the absence of unequivocal hyperglycemia, results should be confirmed by repeat testing. The classification and Diagnosis of Diabetes Diabetes Care 2021; 46: S19-S40. Current interpretive data was last revised 2022. Calcium 10.8(H) 8.5 - 10.3 mg/dL [facility] Bilirubin, total <0.2 0.1 - 1.2 mg/dL [facility] Protein, pl 7.7 6.5 - 8.5 g/dL [facility] Albumin 4.3 3.5 - 5.0 g/dL [facility] Alk phos 65 40 - 130 Units/L [facility] ALT 18 7 - 55 Units/L [facility] AST 18 10 - 50 Units/L [facility] Blood 04/25/2025 10:3 2 AM CDT 04/25/2025 4:45 PM CDT Juni Ramos MD LAB BLOOD ORDERABLES Fi nal Result [facility] [place] [address] * (ABNORMAL) POCT glucose (03/07/2025 11:51 AM CDT) [facility] Glucose, POC 239(H) 70 - 199 mg/dL Comment:Glu2: RN/MD Notified Glucose comment 1 Glu2: RN/MD Notified [facility] Blood 03/07/2025 11:5 1 AM CDT 03/07/2025 11:51 AM CDT Rita Hernandez MD LAB POCT ORDERABLES - DE VICE Final Result [facility] [place] [address] * POCT glucose (03/07/2025 8:35 AM CDT) Glucose, POC 124 70 - 199 mg/dL Blood 03/07/2025 8:35 AM CDT 03/07/2025 8:35 AM CDT us Rita Hernandez MD LAB POCT ORDERABLES - DE VICE Final Result Performing Organization Address [facility] [[email or web address]] Co de Phone Number [facility] [place] [address] * (ABNORMAL) eGFR (03/06/2025 9:41 PM CDT) Pathologist [facility] eGFR 12(L) >=60 mL/min/1. 73 m2 Comment: Interpretive Data Reference Interval Normal >/= 90 mL/min/1.73m2 Mildly decreased* 60 - 89 mL/min/1.73m2 Mildly to moderately decreased 45 - 59 mL/min/1.73m2 Moderately to severely decreased 30 - 44 mL/min/1.73m2 Severely decreased 15 - 29 mL/min/1.73m2 Kidney Failure < 15 mL/min/1.73m2 *Relative to young adult level Estimated glomerular filtration rate is determined by the 2020 CKD-EPI equation recommended by the National Kidney Foundation (A Unifying Approach to GFR Estimation: Recommendations of the NKF-ASK Task Force on Reassessing the Inclusion of Race in Diagnosing Kidney Disease, JASN 2020). The CKD-EPI equation should not be used for patients with unstable renal function and has not been validated in children and those over 70. Current interpretive data was last reviewed 2021. Blood 03/06/2025 9:41 PM CDT 03/06/2025 10:25 PM CDT us Rita Hernandez MD LAB BLOOD ORDERABLES Fin al Result Performing Organization Address City/[facility]/ZIP Co de Phone Number [facility] [place] [address] * (ABNORMAL) CBC without differential (03/06/2025 9:41 PM CDT) [facility] WBC 7.92 3.80 - 9.90 K/cumm Hgb 8.4(L) 13.0 - 17.5 g/dL [facility] Hct 27.4(L) 38.9 - 50.3 % [facility] Plt 354 150 - 400 K/cumm [facility] MPV 8.8(L) 9.1 - 12.3 fL [facility] RBC 3.37(L) 4.30 - 5.80 M/cumm [facility] MCV 81.3 81.3 - 96.4 fL [facility] MCH 24.9(L) 27.1 - 33.3 pg [facility] MCHC 30.7(L) 32.3 - 35.7 g/dL [facility] RDW CV 17.6(H) 11.1 - 14.9 % [facility] RDW SD 50.9(H) 35.7 - 48.1 fL [facility] NRBC abs 0.00 0.00 - 0.01 K/cumm [facility] Blood 03/06/2025 9:41 PM CDT 03/06/2025 10:26 PM CDT [facility] Humberto Hernandez MD LAB BLOOD ORDERABLES Fin al Result [facility] [place] [address] * (ABNORMAL) Renal function panel (03/06/2025 9:41 PM CDT) [facility] Sodium 138 135 - 145 mmol/L Potassium, pl 4.7 3.3 - 4.9 mmol/L [facility] Chloride 102 97 - 110 mmol/L [facility] CO2 25 22 - 32 mmol/L [facility] Anion gap 11 2 - 15 mmol/L [facility] BUN 81(H) 6 - 25 mg/dL [facility] Creatinine 5.22(H) 0.80 - 1.30 mg/dL [facility] Glucose 151 70 - 199 mg/dL [facility] Comment: Interpretive Data Fasting glucose >/= 126 mg/dl is diagnostic for diabetes. Fasting is defined as no caloric intake for at least 8 hours. Fasting glucose between 100 mg/dl to 125 mg/dl is diagnostic of prediabetes. In a patient with classic symptoms of hyperglycemia or hyperglycemic crisis, a random glucose >/= 200 mg/dl is diagnostic for diabetes. In the absence of unequivocal hyperglycemia, results should be confirmed by repeat testing. The classification and Diagnosis of Diabetes Diabetes Care 2021; 46: S19-S40. Current interpretive data was last revised 2022. Calcium 10.2 8.5 - 10.3 mg/dL [facility] Phosphorus, pl 6.0(H) 2.3 - 4.5 mg/dL [facility] Albumin 3.7 3.5 - 5.0 g/dL [facility] Blood 03/06/2025 9:41 PM CDT 03/06/2025 10:25 PM CDT Rita Hernandez MD LAB BLOOD ORDERABLES Fin al Result [facility] [place] [address] * POCT glucose (03/06/2025 8:32 PM CDT) Glucose, POC 177 70 - 199 mg/dL Blood 03/06/2025 8:32 PM CDT 03/06/2025 8:32 PM CDT Rita Hernandez MD LAB POCT ORDERABLES - DE VICE Final Result Performing Organization Address City/[facility]/ZIP Co de Phone Number [facility] [place] [address] * (ABNORMAL) POCT glucose (03/06/2025 6:02 PM CDT) Glucose, POC 278(H) 70 - 199 mg/dL Blood 03/06/2025 6:02 PM CDT 03/06/2025 6:02 PM CDT us Rita Hernandez MD LAB POCT ORDERABLES - DE VICE Final Result Performing Organization Address [facility] Phone Number [facility] [place] [address] * POCT glucose (03/06/2025 3:50 PM CDT) Glucose, POC 190 70 - 199 mg/dL Blood 03/06/2025 3:50 PM CDT 03/06/2025 3:50 PM CDT us Rita Hernandez MD LAB POCT ORDERABLES - DE VICE Final Result Performing Organization Address [facility] Phone Number [facility] [place] [address] * POCT glucose (03/06/2025 12:13 PM CDT) Glucose, POC 126 70 - 199 mg/dL Blood 03/06/2025 12:1 3 PM CDT 03/06/2025 12:13 PM CDT us Rita Hernandez MD LAB POCT ORDERABLES - DE VICE Final Result Performing Organization Address [facility] Phone Number [facility] [place] [address] * POCT glucose (03/06/2025 8:16 AM CDT) Glucose, POC 163 70 - 199 mg/dL Blood 03/06/2025 8:16 AM CDT 03/06/2025 8:16 AM CDT us Rita Hernandez MD LAB POCT ORDERABLES - DE VICE Final Result Performing Organization Address [facility] [[email or web address]] Co de Phone Number ANNMARIE [facility] [place] [address] * (ABNORMAL) eGFR (03/05/2025 9:24 PM CDT) Pathologist [facility] eGFR 12(L) >=60 mL/min/1. 73 m2 Comment: Interpretive Data Reference Interval Normal >/= 90 mL/min/1.73m2 Mildly decreased* 60 - 89 mL/min/1.73m2 Mildly to moderately decreased 45 - 59 mL/min/1.73m2 Moderately to severely decreased 30 - 44 mL/min/1.73m2 Severely decreased 15 - 29 mL/min/1.73m2 Kidney Failure < 15 mL/min/1.73m2 *Relative to young adult level Estimated glomerular filtration rate is determined by the 2020 CKD-EPI equation recommended by the National Kidney Foundation (A Unifying Approach to GFR Estimation: Recommendations of the NKF-ASK Task Force on Reassessing the Inclusion of Race in Diagnosing Kidney Disease, JASN 2020). The CKD-EPI equation should not be used for patients with unstable renal function and has not been validated in children and those over 70. Current interpretive data was last reviewed 2021. Blood 03/05/2025 9:24 PM CDT 03/05/2025 10:08 PM CDT [facility] Humberto Hernandez MD LAB BLOOD ORDERABLES Fin al Result Performing Organization Address [facility] [[email or web address]] Co de Phone Number [facility] [place] [address] * (ABNORMAL) CBC without differential (03/05/2025 9:24 PM CDT) Pathologist [facility] WBC 7.70 3.80 - 9.90 K/cumm Hgb 9.1(L) 13.0 - 17.5 g/dL [facility] Hct 29.4(L) 38.9 - 50.3 % [facility] Plt 379 150 - 400 K/cumm [facility] MPV 8.6(L) 9.1 - 12.3 fL [facility] RBC 3.60(L) 4.30 - 5.80 M/cumm [facility] MCV 81.7 81.3 - 96.4 fL [facility] MCH 25.3(L) 27.1 - 33.3 pg [facility] MCHC 31.0(L) 32.3 - 35.7 g/dL [facility] RDW CV 17.3(H) 11.1 - 14.9 % [facility] RDW SD 50.4(H) 35.7 - 48.1 fL [facility] NRBC abs 0.00 0.00 - 0.01 K/cumm [facility] Blood 03/05/2025 9:24 PM CDT 03/05/2025 9:55 PM CDT Rita Hernandez MD LAB BLOOD ORDERABLES Fin al Result Performing Organization Address City/State/[facility] [[email or web address]] Co de Phone Number [facility] [place] [address] * (ABNORMAL) Renal function panel (03/05/2025 9:24 PM CDT) Sodium 140 135 - 145 mmol/L Potassium, pl 4.9 3.3 - 4.9 mmol/L [facility] Chloride 100 97 - 110 mmol/L [facility] CO2 27 22 - 32 mmol/L [facility] Anion gap 13 2 - 15 mmol/L [facility] BUN 78(H) 6 - 25 mg/dL [facility] Creatinine 5.15(H) 0.80 - 1.30 mg/dL [facility] Glucose 207(H) 70 - 199 mg/dL [facility] Comment: Interpretive Data Fasting glucose >/= 126 mg/dl is diagnostic for diabetes. Fasting is defined as no caloric intake for at least 8 hours. Fasting glucose between 100 mg/dl to 125 mg/dl is diagnostic of prediabetes. In a patient with classic symptoms of hyperglycemia or hyperglycemic crisis, a random glucose >/= 200 mg/dl is diagnostic for diabetes. In the absence of unequivocal hyperglycemia, results should be confirmed by repeat testing. The classification and Diagnosis of Diabetes Diabetes Care 2021; 46: S19-S40. Current interpretive data was last revised 2022. Calcium 10.7(H) 8.5 - 10.3 mg/dL [facility] Phosphorus, pl 6.6(H) 2.3 - 4.5 mg/dL [facility] Albumin 3.8 3.5 - 5.0 g/dL [facility] Blood 03/05/2025 9:24 PM CDT 03/05/2025 10:08 PM CDT us Rita Hernandez MD LAB BLOOD ORDERABLES Fin al Result Performing Organization Address City/[facility] [[email or web address] Co de Phone Number [facility] [place] [address] * (ABNORMAL) POCT glucose (03/05/2025 7:54 PM CDT) Glucose, POC 226(H) 70 - 199 mg/dL Blood 03/05/2025 7:54 PM CDT 03/05/2025 7:54 PM CDT us Rita Hernandez MD LAB POCT ORDERABLES - DE VICE Final Result Performing Organization Address [facility] [[email or web address]] Co de Phone Number [facility] [place] [address] * POCT glucose (03/05/2025 4:51 PM CDT) Glucose, POC 197 70 - 199 mg/dL Blood 03/05/2025 4:51 PM CDT 03/05/2025 4:51 PM CDT us Rita Hernandez MD LAB POCT ORDERABLES - DE VICE Final Result Performing Organization Address [facility] [[email or web address]] Co de Phone Number [facility] Department [place] [address] * (ABNORMAL) POCT glucose (03/05/2025 11:37 AM CDT) Glucose, POC 306(H) 70 - 199 mg/dL Blood 03/05/2025 11:3 7 AM CDT 03/05/2025 11:37 AM CDT us Rita Hernandez MD LAB POCT ORDERABLES - DE VICE Final Result Performing Organization Address [facility] [[email or web address]] [place] [address] * (ABNORMAL) POCT glucose (03/05/2025 11:31 AM CDT) Glucose, POC 323(H) 70 - 199 mg/dL Blood 03/05/2025 11:3 1 AM CDT 03/05/2025 11:31 AM CDT us Rita Hernandez MD LAB POCT ORDERABLES - DE VICE Final Result Performing Organization Address [facility] [[email or web address]] Co [place] Phone Number [facility] [place] [address] * (ABNORMAL) POCT glucose (03/05/2025 11:30 AM CDT) Glucose, POC 352(H) 70 - 199 mg/dL Blood 03/05/2025 11:3 0 AM CDT 03/05/2025 11:30 AM CDT us Rita Hernandez MD LAB POCT ORDERABLES - DE VICE Final Result Performing Organization Address [facility] [[email or web address]] Co [place] Phone Number [facility] [place] [address] * POCT glucose (03/05/2025 7:25 AM CDT) Glucose, POC 151 70 - 199 mg/dL Blood 03/05/2025 7:25 AM CDT 03/05/2025 7:25 AM CDT us Rita Hernandez MD LAB POCT ORDERABLES - DE VICE Final Result Performing Organization Address City/[facility] [[email or web address]] Co de Phone Number [facility] Department [place] [address] * POCT glucose (03/05/2025 3:08 AM CDT) Pathologist [facility] Glucose, POC 199 70 - 199 mg/dL Blood 03/05/2025 3:08 AM CDT 03/05/2025 3:08 AM CDT us Rita Hernandez MD LAB POCT ORDERABLES - DE VICE Final Result Performing Organization Address City/[facility] [[email or web address]] Co de Phone Number [facility] Department [place] [address] * (ABNORMAL) eGFR (03/05/2025 12:28 AM CDT) [facility] eGFR 12(L) >=60 mL/min/1. 73 m2 Comment: Interpretive Data Reference Interval Normal >/= 90 mL/min/1.73m2 Mildly decreased* 60 - 89 mL/min/1.73m2 Mildly to moderately decreased 45 - 59 mL/min/1.73m2 Moderately to severely decreased 30 - 44 mL/min/1.73m2 Severely decreased 15 - 29 mL/min/1.73m2 Kidney Failure < 15 mL/min/1.73m2 *Relative to young adult level Estimated glomerular filtration rate is determined by the 2020 CKD-EPI equation recommended by the National Kidney Foundation (A Unifying Approach to GFR Estimation: Recommendations of the NKF-ASK Task Force on Reassessing the Inclusion of Race in Diagnosing Kidney Disease, JASN 2020). The CKD-EPI equation should not be used for patients with unstable renal function and has not been validated in children and those over 70. Current interpretive data was last reviewed 2021. Blood 03/05/2025 12:2 8 AM CDT 03/05/2025 1:04 AM CDT us Rita Hernandez MD LAB BLOOD ORDERABLES Fin al Result Performing Organization Address [facility] [[email or web address]] Co de Phone Number [facility] [place] [address] * (ABNORMAL) CBC without differential (03/05/2025 12:28 AM CDT) WBC 8.01 3.80 - 9.90 K/cumm Hgb 8.7(L) 13.0 - 17.5 g/dL [facility] Hct 27.9(L) 38.9 - 50.3 % [facility] Plt 397 150 - 400 K/cumm [facility] MPV 8.6(L) 9.1 - 12.3 fL [facility] RBC 3.49(L) 4.30 - 5.80 M/cumm [facility] MCV 79.9(L) 81.3 - 96.4 fL [facility] MCH 24.9(L) 27.1 - 33.3 pg [facility] MCHC 31.2(L) 32.3 - 35.7 g/dL [facility] RDW CV 17.2(H) 11.1 - 14.9 % [facility] RDW SD 49.7(H) 35.7 - 48.1 fL [facility] NRBC abs 0.00 0.00 - 0.01 K/cumm [facility] Blood 03/05/2025 12:2 8 AM CDT 03/05/2025 1:04 AM CDT us Rita Hernandez MD LAB BLOOD ORDERABLES Fin al Result Performing Organization Address [facility] [[email or web address]] Co de Phone Number [facility] [place] [address] * (ABNORMAL) Renal function panel (03/05/2025 12:28 AM CDT) Sodium 138 135 - 145 mmol/L Potassium, pl 4.7 3.3 - 4.9 mmol/L [facility] Chloride 102 97 - 110 mmol/L [facility] CO2 25 22 - 32 mmol/L [facility] Anion gap 11 2 - 15 mmol/L [facility] BUN 75(H) 6 - 25 mg/dL [facility] Creatinine 5.09(H) 0.80 - 1.30 mg/dL [facility] Glucose 179 70 - 199 mg/dL [facility] Comment: Interpretive Data Fasting glucose >/= 126 mg/dl is diagnostic for diabetes. Fasting is defined as no caloric intake for at least 8 hours. Fasting glucose between 100 mg/dl to 125 mg/dl is diagnostic of prediabetes. In a patient with classic symptoms of hyperglycemia or hyperglycemic crisis, a random glucose >/= 200 mg/dl is diagnostic for diabetes. In the absence of unequivocal hyperglycemia, results should be confirmed by repeat testing. The classification and Diagnosis of Diabetes Diabetes Care 2021; 46: S19-S40. Current interpretive data was last revised 2022. Calcium 10.5(H) 8.5 - 10.3 mg/dL [facility] Phosphorus, pl 5.8(H) 2.3 - 4.5 mg/dL [facility] Albumin 3.6 3.5 - 5.0 g/dL [facility] Blood 03/05/2025 12:2 8 AM CDT 03/05/2025 1:04 AM CDT Rita Hernandez MD LAB BLOOD ORDERABLES Fin al Result [facility] [place] [address] * POCT glucose (03/05/2025 12:27 AM CDT) Glucose, POC 186 70 - 199 mg/dL Blood 03/05/2025 12:2 7 AM CDT 03/05/2025 12:27 AM CDT us Rita Hernandez MD LAB POCT ORDERABLES - DE VICE Final Result Performing Organization Address [facility] [[email or web address]] Co de Phone Number [facility] [place] [address] * (ABNORMAL) POCT glucose (03/04/2025 8:19 PM CDT) Glucose, POC 245(H) 70 - 199 mg/dL Blood 03/04/2025 8:19 PM CDT 03/04/2025 8:19 PM CDT us Rita Hernandez MD LAB POCT ORDERABLES - DE VICE Final Result Performing Organization Address [facility] [[email or web address]] Co de Phone Number [facility] [place] [address] * (ABNORMAL) POCT glucose (03/04/2025 5:28 PM CDT) Glucose, POC 244(H) 70 - 199 mg/dL Blood 03/04/2025 5:28 PM CDT 03/04/2025 5:28 PM CDT us Rita Hernandez MD LAB POCT ORDERABLES - DE VICE Final Result Performing Organization Address [facility] [[email or web address]] [place] [address] * POCT glucose (03/04/2025 12:57 PM CDT) Glucose, POC 130 70 - 199 mg/dL Blood 03/04/2025 12:5 7 PM CDT 03/04/2025 12:57 PM CDT us Rita Hernandez MD LAB POCT ORDERABLES - DE VICE Final Result Performing Organization Address [facility] [[email or web address]] Co de Phone Number [facility] [place] [address] * (ABNORMAL) POCT glucose (03/04/2025 8:48 AM CDT) Glucose, POC 209(H) 70 - 199 mg/dL Blood 03/04/2025 8:48 AM CDT 03/04/2025 8:48 AM CDT us Rita Hernandez MD LAB POCT ORDERABLES - DE VICE Final Result Performing Organization Address [facility] Phone Number [facility] [place] [address] * POCT glucose (03/04/2025 4:19 AM CDT) Glucose, POC 166 70 - 199 mg/dL Comment:Glu2: RN/ Notified Glucose comment 1 Glu2: RN/MD Notified [facility] Blood 03/04/2025 4:19 AM CDT 03/04/2025 4:19 AM CDT us Rita Hernandez MD LAB POCT ORDERABLES - DE VICE Final Result Performing Organization Address [facility] [[email or web address]] Co [place] Phone Number [facility] [place] [address] * (ABNORMAL) POCT glucose (03/03/2025 11:57 PM CDT) Glucose, POC 206(H) 70 - 199 mg/dL Comment:Glu2: RN/MD Notified Glucose comment 1 Glu2: RN/MD Notified [facility] Blood 03/03/2025 11:5 7 PM CDT 03/03/2025 11:57 PM CDT us Rita Hernandez MD LAB POCT ORDERABLES - DE VICE Final Result Performing Organization Address [facility] [[email or web address]] Co de Phone Number [facility] [place] [address] * (ABNORMAL) eGFR (03/03/2025 9:00 PM CDT) Pathologist [facility] eGFR 12(L) >=60 mL/min/1. 73 m2 Comment: Interpretive Data Reference Interval Normal >/= 90 mL/min/1.73m2 Mildly decreased* 60 - 89 mL/min/1.73m2 Mildly to moderately decreased 45 - 59 mL/min/1.73m2 Moderately to severely decreased 30 - 44 mL/min/1.73m2 Severely decreased 15 - 29 mL/min/1.73m2 Kidney Failure < 15 mL/min/1.73m2 *Relative to young adult level Estimated glomerular filtration rate is determined by the 2020 CKD-EPI equation recommended by the National Kidney Foundation (A Unifying Approach to GFR Estimation: Recommendations of the NKF-ASK Task Force on Reassessing the Inclusion of Race in Diagnosing Kidney Disease, JASN 2020). The CKD-EPI equation should not be used for patients with unstable renal function and has not been validated in children and those over 70. Current interpretive data was last reviewed 2021. Blood 03/03/2025 9:00 PM CDT 03/03/2025 9:20 PM CDT Rita Hernandez MD LAB BLOOD ORDERABLES Fin al Result Performing Organization Address [facility] [[email or web address]] Co de Phone Number ANNMARIE FOX Ivette [facility] Department [place] [address] * (ABNORMAL) CBC without differential (03/03/2025 9:00 PM CDT) Pathologist [facility] WBC 8.00 3.80 - 9.90 K/cumm Hgb 8.9(L) 13.0 - 17.5 g/dL [facility] Hct 28.9(L) 38.9 - 50.3 % [facility] Plt 391 150 - 400 K/cumm [facility] MPV 8.5(L) 9.1 - 12.3 fL [facility] RBC 3.55(L) 4.30 - 5.80 M/cumm [facility] MCV 81.4 81.3 - 96.4 fL [facility] MCH 25.1(L) 27.1 - 33.3 pg [facility] MCHC 30.8(L) 32.3 - 35.7 g/dL [facility] RDW CV 16.9(H) 11.1 - 14.9 % [facility] RDW SD 49.2(H) 35.7 - 48.1 fL [facility] NRBC abs 0.00 0.00 - 0.01 K/cumm [facility] Blood 03/03/2025 9:00 PM CDT 03/03/2025 9:20 PM CDT [facility] Humberto Hernandez MD LAB BLOOD ORDERABLES Fin al Result [facility] Department [place] [address] * (ABNORMAL) Renal function panel (03/03/2025 9:00 PM CDT) Sodium 139 135 - 145 mmol/L Potassium, pl 4.5 3.3 - 4.9 mmol/L [facility] Chloride 101 97 - 110 mmol/L [facility] CO2 25 22 - 32 mmol/L [facility] Anion gap 13 2 - 15 mmol/L [facility] BUN 70(H) 6 - 25 mg/dL [facility] Creatinine 5.01(H) 0.80 - 1.30 mg/dL [facility] Glucose 238(H) 70 - 199 mg/dL [facility] Comment: Interpretive Data Fasting glucose >/= 126 mg/dl is diagnostic for diabetes. Fasting is defined as no caloric intake for at least 8 hours. Fasting glucose between 100 mg/dl to 125 mg/dl is diagnostic of prediabetes. In a patient with classic symptoms of hyperglycemia or hyperglycemic crisis, a random glucose >/= 200 mg/dl is diagnostic for diabetes. In the absence of unequivocal hyperglycemia, results should be confirmed by repeat testing. The classification and Diagnosis of Diabetes Diabetes Care 2021; 46: S19-S40. Current interpretive data was last revised 2022. Calcium 10.3 8.5 - 10.3 mg/dL [facility] Phosphorus, pl 5.6(H) 2.3 - 4.5 mg/dL [facility] Albumin 3.6 3.5 - 5.0 g/dL [facility] Blood 03/03/2025 9:00 PM CDT 03/03/2025 9:20 PM CDT us Rita Hernandez MD LAB BLOOD ORDERABLES Fin al Result Performing Organization Address [facility] [[email or web address]] Co de Phone Number [facility] [place] [address] * (ABNORMAL) POCT glucose (03/03/2025 8:20 PM CDT) Glucose, POC 225(H) 70 - 199 mg/dL Comment:Glu2: RN/MD Notified Glucose comment 1 Glu2: RN/MD Notified [facility] Blood 03/03/2025 8:20 PM CDT 03/03/2025 8:20 PM CDT us Rita Hernandez MD LAB POCT ORDERABLES - DE VICE Final Result [facility] [place] [address] * POCT glucose (03/03/2025 4:53 PM CDT) Glucose, POC 150 70 - 199 mg/dL Blood 03/03/2025 4:53 PM CDT 03/03/2025 4:53 PM CDT us Rita Hernandez MD LAB POCT ORDERABLES - DE VICE Final Result Performing Organization Address [facility] [[email or web address]] Co de Phone Number [facility] [place] [address] * (ABNORMAL) POCT glucose (03/03/2025 3:03 PM CDT) Glucose, POC 202(H) 70 - 199 mg/dL Comment:Glu2: RN/MD Notified Glucose comment 1 Glu2: RN/MD Notified [facility] Blood 03/03/2025 3:03 PM CDT 03/03/2025 3:03 PM CDT us Rita Hernandez MD LAB POCT ORDERABLES - DE VICE Final Result Performing Organization Address [facility] [[email or web address]] Co de Phone Number [facility] [place] [address] * POCT glucose (03/03/2025 12:19 PM CDT) Glucose, POC 178 70 - 199 mg/dL Blood 03/03/2025 12:1 9 PM CDT 03/03/2025 12:19 PM CDT us Rita Hernadnez MD LAB POCT ORDERABLES - DE VICE Final Result Performing Organization Address [facility]/ZIP Co de Phone Number [facility] [place] [address] * POCT glucose (03/03/2025 7:29 AM CDT) Glucose, POC 144 70 - 199 mg/dL Blood 03/03/2025 7:29 AM CDT 03/03/2025 7:29 AM CDT us Rita Hernandez MD LAB POCT ORDERABLES - DE VICE Final Result Performing Organization Address [facility]/ZIP Co de Phone Number [facility] [place] [address] * (ABNORMAL) eGFR (03/02/2025 10:12 PM CDT) Pathologist [facility] eGFR 13(L) >=60 mL/min/1. 73 m2 Comment: Interpretive Data Reference Interval Normal >/= 90 mL/min/1.73m2 Mildly decreased* 60 - 89 mL/min/1.73m2 Mildly to moderately decreased 45 - 59 mL/min/1.73m2 Moderately to severely decreased 30 - 44 mL/min/1.73m2 Severely decreased 15 - 29 mL/min/1.73m2 Kidney Failure < 15 mL/min/1.73m2 *Relative to young adult level Estimated glomerular filtration rate is determined by the 2020 CKD-EPI equation recommended by the National Kidney Foundation (A Unifying Approach to GFR Estimation: Recommendations of the NKF-ASK Task Force on Reassessing the Inclusion of Race in Diagnosing Kidney Disease, JASN 2020). The CKD-EPI equation should not be used for patients with unstable renal function and has not been validated in children and those over 70. Current interpretive data was last reviewed 2021. Blood 03/02/2025 10:1 2 PM CDT 03/03/2025 1:31 AM CDT Rita Hernandez MD LAB BLOOD ORDERABLES [facility] al Result ANNMARIE FOX Ivette [facility] Department [place] [address] * (ABNORMAL) CBC without differential (03/02/2025 10:12 PM CDT) Pathologist [facility] WBC 7.72 3.80 - 9.90 K/cumm Hgb 9.2(L) 13.0 - 17.5 g/dL [facility] Hct 30.6(L) 38.9 - 50.3 % [facility] Plt 410(H) 150 - 400 K/cumm [facility] MPV 8.7(L) 9.1 - 12.3 fL [facility] RBC 3.67(L) 4.30 - 5.80 M/cumm [facility] MCV 83.4 81.3 - 96.4 fL [facility] MCH 25.1(L) 27.1 - 33.3 pg [facility] MCHC 30.1(L) 32.3 - 35.7 g/dL [facility] RDW CV 16.9(H) 11.1 - 14.9 % [facility] RDW SD 50.4(H) 35.7 - 48.1 fL [facility] NRBC abs 0.00 0.00 - 0.01 K/cumm [facility] Blood 03/02/2025 10:1 2 PM CDT 03/03/2025 1:30 AM CDT Rita Hernandez MD LAB BLOOD ORDERABLES Fin al Result [facility] [place] [address] * (ABNORMAL) Renal function panel (03/02/2025 10:12 PM CDT) [facility] Signature Sodium 139 135 - 145 mmol/L Potassium, pl 4.5 3.3 - 4.9 mmol/L [facility] Chloride 101 97 - 110 mmol/L [facility] CO2 26 22 - 32 mmol/L [facility] Anion gap 12 2 - 15 mmol/L [facility] BUN 66(H) 6 - 25 mg/dL [facility] Creatinine 4.74(H) 0.80 - 1.30 mg/dL [facility] Glucose 156 70 - 199 mg/dL [facility] Comment: Interpretive Data Fasting glucose >/= 126 mg/dl is diagnostic for diabetes. Fasting is defined as no caloric intake for at least 8 hours. Fasting glucose between 100 mg/dl to 125 mg/dl is diagnostic of prediabetes. In a patient with classic symptoms of hyperglycemia or hyperglycemic crisis, a random glucose >/= 200 mg/dl is diagnostic for diabetes. In the absence of unequivocal hyperglycemia, results should be confirmed by repeat testing. The classification and Diagnosis of Diabetes Diabetes Care 202; 46: S19-S40. Current interpretive data was last revised 2022. Calcium 10.6(H) 8.5 - 10.3 mg/dL [facility] Phosphorus, pl 5.5(H) 2.3 - 4.5 mg/dL [facility] Albumin 3.6 3.5 - 5.0 g/dL [facility] Blood 03/02/2025 10:1 2 PM CDT 03/03/2025 1:31 AM CDT us Rita Hernandez MD LAB BLOOD ORDERABLES Fin al Result Performing Organization Address [facility] [[email or web address]] Co de Phone Number [facility] [place] [address] * (ABNORMAL) POCT glucose (03/02/2025 8:34 PM CDT) Glucose, POC 226(H) 70 - 199 mg/dL Blood 03/02/2025 8:34 PM CDT 03/02/2025 8:34 PM CDT Rita Hernandez MD LAB POCT ORDERABLES - DE VICE Final Result Performing Organization Address [facility] [[email or web address]] Co de Phone Number [facility] [place] [address] * (ABNORMAL) POCT glucose (03/02/2025 4:53 PM CDT) Glucose, POC 246(H) 70 - 199 mg/dL Comment:Glu2: RN/MD Notified Glucose comment 1 Glu2: RN/MD Notified [facility] Blood 03/02/2025 4:53 PM CDT 03/02/2025 4:53 PM CDT us Rita Hernandez MD LAB POCT ORDERABLES - DE VICE Final Result Performing Organization Address [facility] [[email or web address]] Co de Phone Number [facility]ERN[facility] [place] [address] * POCT glucose (03/02/2025 12:16 PM CDT) Glucose, POC 165 70 - 199 mg/dL Blood 03/02/2025 12:1 6 PM CDT 03/02/2025 12:16 PM CDT us Rita Hernandez MD LAB POCT ORDERABLES - DE [place]ICE [place] [address] * (ABNORMAL) POCT glucose (03/02/2025 11:18 AM CDT) Glucose, POC 302(H) 70 - 199 mg/dL Comment:Glu2: RN/MD Notified Glucose comment 1 Glu2: RN/MD Notified [facility] Blood 03/02/2025 11:1 8 AM CDT 03/02/2025 11:18 AM CDT us Rita Hernandez MD LAB POCT ORDERABLES - DE VICE Final Result [facility] [place] [address] * POCT glucose (03/02/2025 7:40 AM CDT) Glucose, POC 155 70 - 199 mg/dL Blood 03/02/2025 7:40 AM CDT 03/02/2025 7:40 AM CDT us Rita Hernandez MD LAB POCT ORDERABLES - DE VICE Final Result [facility] [place] [address] * Potassium, whole blood (03/02/2025 12:59 AM CDT) Potassium, bld 4.4 3.3 - 4.9 mmol/L Blood 03/02/2025 12:5 9 AM CDT 03/02/2025 1:15 AM CDT Rita Hernandez MD LAB BLOOD ORDERABLES Fin al Result Performing Organization Address [facility] [[email or web address]] Co de Phone Number ANNMARIE [facility] [place] [address] * (ABNORMAL) eGFR (03/01/2025 10:01 PM CDT) eGFR 13(L) >=60 mL/min/1. 73 m2 Comment: Interpretive Data Reference Interval Normal >/= 90 mL/min/1.73m2 Mildly decreased* 60 - 89 mL/min/1.73m2 Mildly to moderately decreased 45 - 59 mL/min/1.73m2 Moderately to severely decreased 30 - 44 mL/min/1.73m2 Severely decreased 15 - 29 mL/min/1.73m2 Kidney Failure < 15 mL/min/1.73m2 *Relative to young adult level Estimated glomerular filtration rate is determined by the 2020 CKD-EPI equation recommended by the National Kidney Foundation (A Unifying Approach to GFR Estimation: Recommendations of the NKF-ASK Task Force on Reassessing the Inclusion of Race in Diagnosing Kidney Disease, JASN 2020). The CKD-EPI equation should not be used for patients with unstable renal function and has not been validated in children and those over 70. Current interpretive data was last reviewed 2021. Blood 03/01/2025 10:0 1 PM CDT 03/01/2025 11:16 PM CDT us Rita Hernandez MD LAB BLOOD ORDERABLES Fin al Result Performing Organization Address City/[facility]/ZIP Co de Phone Number [facility] [place] [address] * (ABNORMAL) CBC without differential (03/01/2025 10:01 PM CDT) [facility] WBC 7.73 3.80 - 9.90 K/cumm Hgb 8.4(L) 13.0 - 17.5 g/dL [facility] Hct 27.1(L) 38.9 - 50.3 % [facility] Plt 376 150 - 400 K/cumm [facility] MPV 8.6(L) 9.1 - 12.3 fL [facility] RBC 3.29(L) 4.30 - 5.80 M/cumm [facility] MCV 82.4 81.3 - 96.4 fL [facility] MCH 25.5(L) 27.1 - 33.3 pg [facility] MCHC 31.0(L) 32.3 - 35.7 g/dL [facility] RDW CV 17.2(H) 11.1 - 14.9 % [facility] RDW SD 50.8(H) 35.7 - 48.1 fL [facility] NRBC abs 0.00 0.00 - 0.01 K/cumm [facility] Blood 03/01/2025 10:0 1 PM CDT 03/01/2025 11:16 PM CDT Rita Humberto Hernandez MD LAB BLOOD ORDERABLES Fin al Result [facility] [place] [address] * (ABNORMAL) Renal function panel (03/01/2025 10:01 PM CDT) Pathologist [facility] Sodium 141 135 - 145 mmol/L Potassium, pl 5.3(H) 3.3 - 4.9 mmol/L [facility] Chloride 104 97 - 110 mmol/L [facility] CO2 24 22 - 32 mmol/L [facility] Anion gap 13 2 - 15 mmol/L [facility] BUN 59(H) 6 - 25 mg/dL [facility] Creatinine 4.90(H) 0.80 - 1.30 mg/dL [facility] Glucose 182 70 - 199 mg/dL [facility] Comment: Interpretive Data Fasting glucose >/= 126 mg/dl is diagnostic for diabetes. Fasting is defined as no caloric intake for at least 8 hours. Fasting glucose between 100 mg/dl to 125 mg/dl is diagnostic of prediabetes. In a patient with classic symptoms of hyperglycemia or hyperglycemic crisis, a random glucose >/= 200 mg/dl is diagnostic for diabetes. In the absence of unequivocal hyperglycemia, results should be confirmed by repeat testing. The classification and Diagnosis of Diabetes Diabetes Care 2021; 46: S19-S40. Current interpretive data was last revised 2022. Calcium 9.7 8.5 - 10.3 mg/dL [facility] Phosphorus, pl 6.0(H) 2.3 - 4.5 mg/dL [facility] Albumin 3.2(L) 3.5 - 5.0 g/dL [facility] Blood 03/01/2025 10:0 1 PM CDT 03/01/2025 11:16 PM CDT Rita Hernandez MD LAB BLOOD ORDERABLES Fin al Result [facility] [place] [address] * POCT glucose (03/01/2025 8:58 PM CDT) [facility] Glucose, POC 164 70 - 199 mg/dL Blood 03/01/2025 8:58 PM CDT 03/01/2025 8:58 PM CDT Rita Hernandez MD LAB POCT ORDERABLES - DE VICE Final Result Performing Organization Address City/[facility]/ZIP Co de Phone Number [facility] Department [place] [address] * ECG 12 lead (03/01/2025 6:21 PM CDT) [facility] Ventricular Rate EKG/Min 86 BPM [facility] Atrial Rate 86 BPM [facility] ME-Interval (MSEC) 124 ms [facility] QRS-Interval (MSEC) 88 ms [facility] QT-Interval (MSEC) 352 ms [facility] QTc 421 ms [facility] P [place] 48 degrees [facility] R [place] 54 degrees [facility] T [place] 50 degrees [facility] Diagnosis Normal sinus rhythm Normal ECG When compared with ECG of 12-FEB-2025 17:53, Nonspecific T wave abnormality no longer evident in Inferior leads Confirmed by MARILYN SWANN M.D ([id number]) on 03/02/2025 2:45:51 PM [facility] 03/01/2025 6:21 PM CDT 03/02/2025 2:45 PM CDT us Rita Hernandez MD ECG ORDERABLES Final Re sult Performing Organization Address [facility]/ZIP Co de Phone Number [facility] * (ABNORMAL) Potassium, whole blood (03/01/2025 4:35 PM CDT) Pathologist [facility] Potassium, bld 5.5(H) 3.3 - 4.9 mmol/L Blood 03/01/2025 4:35 PM CDT 03/01/2025 5:17 PM CDT us Rita Hernandez MD LAB BLOOD ORDERABLES Fin al Result [facility] Department [place] [address] * POCT glucose (03/01/2025 3:47 PM CDT) Pathologist [facility] Glucose, POC 154 70 - 199 mg/dL Blood 03/01/2025 3:47 PM CDT 03/01/2025 3:47 PM CDT us Rita Hernandez MD LAB POCT ORDERABLES - DE VICE Final Result Performing Organization Address [facility] [[email or web address]] Co de Phone Number [facility] Department [place] [address] * (ABNORMAL) eGFR (03/01/2025 1:48 PM CDT) eGFR 12(L) >=60 mL/min/1. 73 m2 Comment: Interpretive Data Reference Interval Normal >/= 90 mL/min/1.73m2 Mildly decreased* 60 - 89 mL/min/1.73m2 Mildly to moderately decreased 45 - 59 mL/min/1.73m2 Moderately to severely decreased 30 - 44 mL/min/1.73m2 Severely decreased 15 - 29 mL/min/1.73m2 Kidney Failure < 15 mL/min/1.73m2 *Relative to young adult level Estimated glomerular filtration rate is determined by the 2020 CKD-EPI equation recommended by the National Kidney Foundation (A Unifying Approach to GFR Estimation: Recommendations of the NKF-ASK Task Force on Reassessing the Inclusion of Race in Diagnosing Kidney Disease, JASN 2020). The CKD-EPI equation should not be used for patients with unstable renal function and has not been validated in children and those over 70. Current interpretive data was last reviewed 2021. Blood 03/01/2025 1:48 PM CDT 03/01/2025 3:02 PM CDT [facility] Humberto Hernandez MD LAB BLOOD ORDERABLES Fin al Result Performing Organization Address [facility]/ZIP Co de Phone Number [facility] Department [place] [address] * (ABNORMAL) Renal function panel (03/01/2025 1:48 PM CDT) Sodium 138 135 - 145 mmol/L Potassium, pl 5.2(H) 3.3 - 4.9 mmol/L [facility] Chloride 101 97 - 110 mmol/L [facility] CO2 26 22 - 32 mmol/L [facility] Anion gap 11 2 - 15 mmol/L [facility] BUN 56(H) 6 - 25 mg/dL [facility] Creatinine 4.97(H) 0.80 - 1.30 mg/dL [facility] Glucose 169 70 - 199 mg/dL [facility] Comment: Interpretive Data Fasting glucose >/= 126 mg/dl is diagnostic for diabetes. Fasting is defined as no caloric intake for at least 8 hours. Fasting glucose between 100 mg/dl to 125 mg/dl is diagnostic of prediabetes. In a patient with classic symptoms of hyperglycemia or hyperglycemic crisis, a random glucose >/= 200 mg/dl is diagnostic for diabetes. In the absence of unequivocal hyperglycemia, results should be confirmed by repeat testing. The classification and Diagnosis of Diabetes Diabetes Care 2021; 46: S19-S40. Current interpretive data was last revised 2022. Calcium 9.7 8.5 - 10.3 mg/dL [facility] Phosphorus, pl 5.1(H) 2.3 - 4.5 mg/dL [facility] Albumin 3.7 3.5 - 5.0 g/dL [facility] Blood 03/01/2025 1:48 PM CDT 03/01/2025 3:02 PM CDT us Rita Hernandez MD LAB BLOOD ORDERABLES Fin al Result [facility] [place] [address] * POCT glucose (03/01/2025 11:32 AM CDT) [facility] Glucose, POC 189 70 - 199 mg/dL Blood 03/01/2025 11:3 2 AM CDT 03/01/2025 11:32 AM CDT us Rita Hernandez MD LAB POCT ORDERABLES - DE VICE Final Result Performing Organization Address City/[facility]/ZIP Co de Phone Number [facility] [place] [address] * POCT glucose (03/01/2025 7:35 AM CDT) Glucose, POC 134 70 - 199 mg/dL Blood 03/01/2025 7:35 AM CDT 03/01/2025 7:35 AM CDT Rita Hernandez MD LAB POCT ORDERABLES - DE VICE Final Result Performing Organization Address [facility] de Phone Number ANNMARIE [facility] [place] [address] * (ABNORMAL) eGFR (02/28/2025 9:13 PM CDT) eGFR 12(L) >=60 mL/min/1. 73 m2 Comment: Interpretive Data Reference Interval Normal >/= 90 mL/min/1.73m2 Mildly decreased* 60 - 89 mL/min/1.73m2 Mildly to moderately decreased 45 - 59 mL/min/1.73m2 Moderately to severely decreased 30 - 44 mL/min/1.73m2 Severely decreased 15 - 29 mL/min/1.73m2 Kidney Failure < 15 mL/min/1.73m2 *Relative to young adult level Estimated glomerular filtration rate is determined by the 2020 CKD-EPI equation recommended by the National Kidney Foundation (A Unifying Approach to GFR Estimation: Recommendations of the NKF-ASK Task Force on Reassessing the Inclusion of Race in Diagnosing Kidney Disease, JASN 2020). The CKD-EPI equation should not be used for patients with unstable renal function and has not been validated in children and those over 70. Current interpretive data was last reviewed 2021. Blood 02/28/2025 9:13 PM CDT 02/28/2025 9:47 PM CDT us Rita Hernandez MD LAB BLOOD ORDERABLES Fin al Result Performing Organization Address [facility]/ZIP Co de Phone Number [facility] Department [place] [address] * (ABNORMAL) CBC without differential (02/28/2025 9:13 PM CDT) [facility] WBC 8.51 3.80 - 9.90 K/cumm Hgb 9.1(L) 13.0 - 17.5 g/dL [facility] Hct 29.6(L) 38.9 - 50.3 % [facility] Plt 402(H) 150 - 400 K/cumm [facility] MPV 8.3(L) 9.1 - 12.3 fL [facility] RBC 3.65(L) 4.30 - 5.80 M/cumm [facility] MCV 81.1(L) 81.3 - 96.4 fL [facility] MCH 24.9(L) 27.1 - 33.3 pg [facility] MCHC 30.7(L) 32.3 - 35.7 g/dL [facility] RDW CV 16.8(H) 11.1 - 14.9 % [facility] RDW SD 49.6(H) 35.7 - 48.1 fL [facility] NRBC abs 0.00 0.00 - 0.01 K/cumm [facility] Blood 02/28/2025 9:13 PM CDT 02/28/2025 9:47 PM CDT Rita Hernandez MD LAB BLOOD ORDERABLES Fin al Result [facility] [place] [address] * (ABNORMAL) Renal function panel (02/28/2025 9:13 PM CDT) [facility] Sodium 140 135 - 145 mmol/L Potassium, pl 4.7 3.3 - 4.9 mmol/L [facility] Chloride 102 97 - 110 mmol/L [facility] CO2 25 22 - 32 mmol/L [facility] Anion gap 13 2 - 15 mmol/L [facility] BUN 59(H) 6 - 25 mg/dL [facility] Creatinine 5.15(H) 0.80 - 1.30 mg/dL [facility] Glucose 286(H) 70 - 199 mg/dL [facility] Comment: Interpretive Data Fasting glucose >/= 126 mg/dl is diagnostic for diabetes. Fasting is defined as no caloric intake for at least 8 hours. Fasting glucose between 100 mg/dl to 125 mg/dl is diagnostic of prediabetes. In a patient with classic symptoms of hyperglycemia or hyperglycemic crisis, a random glucose >/= 200 mg/dl is diagnostic for diabetes. In the absence of unequivocal hyperglycemia, results should be confirmed by repeat testing. The classification and Diagnosis of Diabetes Diabetes Care 2021; 46: S19-S40. Current interpretive data was last revised 2022. Calcium 10.1 8.5 - 10.3 mg/dL [facility] Phosphorus, pl 4.9(H) 2.3 - 4.5 mg/dL [facility] Albumin 3.8 3.5 - 5.0 g/dL [facility] Blood 02/28/2025 9:13 PM CDT 02/28/2025 9:47 PM CDT Rita Hernandez MD LAB BLOOD ORDERABLES Fin al Result [facility] [place] [address] * (ABNORMAL) POCT glucose (02/28/2025 7:38 PM CDT) Glucose, POC 275(H) 70 - 199 mg/dL Blood 02/28/2025 7:38 PM CDT 02/28/2025 7:38 PM CDT Rita Hernandez MD LAB POCT ORDERABLES - DE VICE Final Result Performing Organization Address City/[facility]/ZIP Co de Phone Number [facility] [place] [address] * POCT glucose (02/28/2025 5:54 PM CDT) Glucose, POC 165 70 - 199 mg/dL Blood 02/28/2025 5:54 PM CDT 02/28/2025 5:54 PM CDT us Rita Hernandez MD LAB POCT ORDERABLES - DE VICE Final Result Performing Organization Address [facility] [[email or web address]] Co de Phone Number [facility] [place] [address] * (ABNORMAL) eGFR (02/27/2025 9:30 PM CDT) eGFR 13(L) >=60 mL/min/1. 73 m2 Comment: Interpretive Data Reference Interval Normal >/= 90 mL/min/1.73m2 Mildly decreased* 60 - 89 mL/min/1.73m2 Mildly to moderately decreased 45 - 59 mL/min/1.73m2 Moderately to severely decreased 30 - 44 mL/min/1.73m2 Severely decreased 15 - 29 mL/min/1.73m2 Kidney Failure < 15 mL/min/1.73m2 *Relative to young adult level Estimated glomerular filtration rate is determined by the 2020 CKD-EPI equation recommended by the National Kidney Foundation (A Unifying Approach to GFR Estimation: Recommendations of the NKF-ASK Task Force on Reassessing the Inclusion of Race in Diagnosing Kidney Disease, JASN 2020). The CKD-EPI equation should not be used for patients with unstable renal function and has not been validated in children and those over 70. Current interpretive data was last reviewed 2021. Blood 02/27/2025 9:30 PM CDT 02/27/2025 10:23 PM CDT us Rita Hernandez MD LAB BLOOD ORDERABLES Fin al Result Performing Organization Address City/[facility]/ZIP Co de Phone Number [facility] Department [place] [address] * (ABNORMAL) CBC without differential (02/27/2025 9:30 PM CDT) WBC 7.93 3.80 - 9.90 K/cumm Hgb 8.2(L) 13.0 - 17.5 g/dL [facility] Hct 27.0(L) 38.9 - 50.3 % [facility] Plt 355 150 - 400 K/cumm [facility] MPV 8.5(L) 9.1 - 12.3 fL [facility] RBC 3.30(L) 4.30 - 5.80 M/cumm [facility] MCV 81.8 81.3 - 96.4 fL [facility] MCH 24.8(L) 27.1 - 33.3 pg [facility] MCHC 30.4(L) 32.3 - 35.7 g/dL [facility] RDW CV 17.0(H) 11.1 - 14.9 % [facility] RDW SD 49.9(H) 35.7 - 48.1 fL [facility] NRBC abs 0.00 0.00 - 0.01 K/cumm [facility] Blood 02/27/2025 9:30 PM CDT 02/27/2025 10:22 PM CDT [facility] Humberto Hernandez MD LAB BLOOD ORDERABLES Fin al Result [facility] [place] [address] * (ABNORMAL) Renal function panel (02/27/2025 9:30 PM CDT) Pathologist [facility] Sodium 138 135 - 145 mmol/L Potassium, pl 4.9 3.3 - 4.9 mmol/L [facility] Chloride 102 97 - 110 mmol/L [facility] CO2 23 22 - 32 mmol/L [facility] Anion gap 13 2 - 15 mmol/L [facility] BUN 51(H) 6 - 25 mg/dL [facility] Creatinine 4.84(H) 0.80 - 1.30 mg/dL [facility] Glucose 183 70 - 199 mg/dL [facility] Comment: Interpretive Data Fasting glucose >/= 126 mg/dl is diagnostic for diabetes. Fasting is defined as no caloric intake for at least 8 hours. Fasting glucose between 100 mg/dl to 125 mg/dl is diagnostic of prediabetes. In a patient with classic symptoms of hyperglycemia or hyperglycemic crisis, a random glucose >/= 200 mg/dl is diagnostic for diabetes. In the absence of unequivocal hyperglycemia, results should be confirmed by repeat testing. The classification and Diagnosis of Diabetes Diabetes Care 2021; 46: S19-S40. Current interpretive data was last revised 2022. Calcium 9.1 8.5 - 10.3 mg/dL [facility] Phosphorus, pl 5.0(H) 2.3 - 4.5 mg/dL [facility] Albumin 3.0(L) 3.5 - 5.0 g/dL [facility] Blood 02/27/2025 9:30 PM CDT 02/27/2025 10:23 PM CDT Rita Hernandez MD LAB BLOOD ORDERABLES Fin al Result [facility] [place] [address] * (ABNORMAL) eGFR (02/26/2025 8:35 PM CDT) eGFR 13(L) >=60 mL/min/1. 73 m2 Comment: Interpretive Data Reference Interval Normal >/= 90 mL/min/1.73m2 Mildly decreased* 60 - 89 mL/min/1.73m2 Mildly to moderately decreased 45 - 59 mL/min/1.73m2 Moderately to severely decreased 30 - 44 mL/min/1.73m2 Severely decreased 15 - 29 mL/min/1.73m2 Kidney Failure < 15 mL/min/1.73m2 *Relative to young adult level Estimated glomerular filtration rate is determined by the 2020 CKD-EPI equation recommended by the National Kidney Foundation (A Unifying Approach to GFR Estimation: Recommendations of the NKF-ASK Task Force on Reassessing the Inclusion of Race in Diagnosing Kidney Disease, JASN 2020). The CKD-EPI equation should not be used for patients with unstable renal function and has not been validated in children and those over 70. Current interpretive data was last reviewed 2021. Blood 02/26/2025 8:35 PM CDT 02/26/2025 9:29 PM CDT us Rita Hernandez MD LAB BLOOD ORDERABLES Fin al Result Performing Organization Address [facility] [[email or web address]] Co de Phone Number [facility] [place] [address] * (ABNORMAL) CBC without differential (02/26/2025 8:35 PM CDT) Pathologist [facility] WBC 7.67 3.80 - 9.90 K/cumm Hgb 8.3(L) 13.0 - 17.5 g/dL [facility] Hct 27.2(L) 38.9 - 50.3 % [facility] Plt 394 150 - 400 K/cumm [facility] MPV 8.6(L) 9.1 - 12.3 fL [facility] RBC 3.32(L) 4.30 - 5.80 M/cumm [facility] MCV 81.9 81.3 - 96.4 fL [facility] MCH 25.0(L) 27.1 - 33.3 pg [facility] MCHC 30.5(L) 32.3 - 35.7 g/dL [facility] RDW CV 17.2(H) 11.1 - 14.9 % [facility] RDW SD 50.8(H) 35.7 - 48.1 fL [facility] NRBC abs 0.00 0.00 - 0.01 K/cumm [facility] Blood 02/26/2025 8:35 PM CDT 02/26/2025 9:29 PM CDT us Rita Hernandez MD LAB BLOOD ORDERABLES Fin al Result Performing Organization Address [facility] [[email or web address]] Co de Phone Number [facility] [place] [address] * (ABNORMAL) Renal function panel (02/26/2025 8:35 PM CDT) Pathologist [facility] Sodium 142 135 - 145 mmol/L Potassium, pl 4.6 3.3 - 4.9 mmol/L [facility] Chloride 105 97 - 110 mmol/L [facility] CO2 23 22 - 32 mmol/L [facility] Anion gap 14 2 - 15 mmol/L [facility] BUN 49(H) 6 - 25 mg/dL [facility] Creatinine 4.72(H) 0.80 - 1.30 mg/dL [facility] Glucose 200(H) 70 - 199 mg/dL [facility] Comment: Interpretive Data Fasting glucose >/= 126 mg/dl is diagnostic for diabetes. Fasting is defined as no caloric intake for at least 8 hours. Fasting glucose between 100 mg/dl to 125 mg/dl is diagnostic of prediabetes. In a patient with classic symptoms of hyperglycemia or hyperglycemic crisis, a random glucose >/= 200 mg/dl is diagnostic for diabetes. In the absence of unequivocal hyperglycemia, results should be confirmed by repeat testing. The classification and Diagnosis of Diabetes Diabetes Care 2021; 46: S19-S40. Current interpretive data was last revised 2022. Calcium 9.3 8.5 - 10.3 mg/dL [facility] Phosphorus, pl 4.7(H) 2.3 - 4.5 mg/dL [facility] Albumin 3.4(L) 3.5 - 5.0 g/dL [facility] Blood 02/26/2025 8:35 PM CDT 02/26/2025 9:29 PM CDT Rita Hernandez MD LAB BLOOD ORDERABLES Fin al Result [facility] Department [place] [address] * (ABNORMAL) eGFR (02/25/2025 8:58 PM CDT) Pathologist [facility] eGFR 13(L) >=60 mL/min/1. 73 m2 Comment: Interpretive Data Reference Interval Normal >/= 90 mL/min/1.73m2 Mildly decreased* 60 - 89 mL/min/1.73m2 Mildly to moderately decreased 45 - 59 mL/min/1.73m2 Moderately to severely decreased 30 - 44 mL/min/1.73m2 Severely decreased 15 - 29 mL/min/1.73m2 Kidney Failure < 15 mL/min/1.73m2 *Relative to young adult level Estimated glomerular filtration rate is determined by the 2020 CKD-EPI equation recommended by the National Kidney Foundation (A Unifying Approach to GFR Estimation: Recommendations of the NKF-ASK Task Force on Reassessing the Inclusion of Race in Diagnosing Kidney Disease, JASN 2020). The CKD-EPI equation should not be used for patients with unstable renal function and has not been validated in children and those over 70. Current interpretive data was last reviewed 2021. Blood 02/25/2025 8:58 PM CDT 02/25/2025 9:27 PM CDT [place] Humberto Hernandez MD LAB BLOOD ORDERABLES [facility] al Result [facility] Department [place] [address] * (ABNORMAL) CBC without differential (02/25/2025 8:58 PM CDT) WBC 8.05 3.80 - 9.90 K/cumm Hgb 8.3(L) 13.0 - 17.5 g/dL [facility] Hct 27.7(L) 38.9 - 50.3 % [facility] Plt 362 150 - 400 K/cumm [facility] MPV 8.3(L) 9.1 - 12.3 fL [facility] RBC 3.32(L) 4.30 - 5.80 M/cumm [facility] MCV 83.4 81.3 - 96.4 fL [facility] MCH 25.0(L) 27.1 - 33.3 pg [facility] MCHC 30.0(L) 32.3 - 35.7 g/dL [facility] RDW CV 17.1(H) 11.1 - 14.9 % [facility] RDW SD 51.7(H) 35.7 - 48.1 fL [facility] NRBC abs 0.00 0.00 - 0.01 K/cumm [facility] Blood 02/25/2025 8:58 PM CDT 02/25/2025 9:27 PM CDT Rita Hernandez MD LAB BLOOD ORDERABLES Fin al Result [facility] Department [place] [address] * (ABNORMAL) Renal function panel (02/25/2025 8:58 PM CDT) Sodium 141 135 - 145 mmol/L Potassium, pl 4.9 3.3 - 4.9 mmol/L [facility] Chloride 106 97 - 110 mmol/L [facility] CO2 24 22 - 32 mmol/L [facility] Anion gap 11 2 - 15 mmol/L [facility] BUN 45(H) 6 - 25 mg/dL [facility] Creatinine 4.66(H) 0.80 - 1.30 mg/dL [facility] Glucose 168 70 - 199 mg/dL [facility] Comment: Interpretive Data Fasting glucose >/= 126 mg/dl is diagnostic for diabetes. Fasting is defined as no caloric intake for at least 8 hours. Fasting glucose between 100 mg/dl to 125 mg/dl is diagnostic of prediabetes. In a patient with classic symptoms of hyperglycemia or hyperglycemic crisis, a random glucose >/= 200 mg/dl is diagnostic for diabetes. In the absence of unequivocal hyperglycemia, results should be confirmed by repeat testing. The classification and Diagnosis of Diabetes Diabetes Care 202; 46: S19-S40. Current interpretive data was last revised 2022. Calcium 8.9 8.5 - 10.3 mg/dL [facility] Phosphorus, pl 4.2 2.3 - 4.5 mg/dL [facility] Albumin 3.2(L) 3.5 - 5.0 g/dL [facility] Blood 02/25/2025 8:58 PM CDT 02/25/2025 9:27 PM CDT Rita Hernandez MD LAB BLOOD ORDERABLES Fin al Result Performing Organization Address [facility] [[email or web address]] Co de Phone Number [facility] [place] [address] * (ABNORMAL) eGFR (02/24/2025 8:53 PM CDT) eGFR 14(L) >=60 mL/min/1. 73 m2 Comment: Interpretive Data Reference Interval Normal >/= 90 mL/min/1.73m2 Mildly decreased* 60 - 89 mL/min/1.73m2 Mildly to moderately decreased 45 - 59 mL/min/1.73m2 Moderately to severely decreased 30 - 44 mL/min/1.73m2 Severely decreased 15 - 29 mL/min/1.73m2 Kidney Failure < 15 mL/min/1.73m2 *Relative to young adult level Estimated glomerular filtration rate is determined by the 2020 CKD-EPI equation recommended by the National Kidney Foundation (A Unifying Approach to GFR Estimation: Recommendations of the NKF-ASK Task Force on Reassessing the Inclusion of Race in Diagnosing Kidney Disease, JASN 2020). The CKD-EPI equation should not be used for patients with unstable renal function and has not been validated in children and those over 70. Current interpretive data was last reviewed 2021. Blood 02/24/2025 8:53 PM CDT 02/24/2025 9:48 PM CDT Rita Hernandez MD LAB BLOOD ORDERABLES Fin al Result Performing Organization Address City/[facility]/ZIP Co de Phone Number ANNMARIE FOX [facility] Department [place] [address] * (ABNORMAL) CBC without differential (02/24/2025 8:53 PM CDT) WBC 8.53 3.80 - 9.90 K/cumm Hgb 8.4(L) 13.0 - 17.5 g/dL [facility] Hct 27.4(L) 38.9 - 50.3 % [facility] Plt 357 150 - 400 K/cumm [facility] MPV 8.4(L) 9.1 - 12.3 fL [facility] RBC 3.32(L) 4.30 - 5.80 M/cumm [facility] MCV 82.5 81.3 - 96.4 fL [facility] MCH 25.3(L) 27.1 - 33.3 pg [facility] MCHC 30.7(L) 32.3 - 35.7 g/dL [facility] RDW CV 16.8(H) 11.1 - 14.9 % [facility] RDW SD 50.3(H) 35.7 - 48.1 fL [facility] NRBC abs 0.00 0.00 - 0.01 K/cumm [facility] Blood 02/24/2025 8:53 PM CDT 02/24/2025 9:48 PM CDT [facility] Humberto Hernandez MD LAB BLOOD ORDERABLES Fin al Result [facility] Department [place] [address] * (ABNORMAL) Renal function panel (02/24/2025 8:53 PM CDT) Sodium 140 135 - 145 mmol/L Potassium, pl 4.9 3.3 - 4.9 mmol/L [facility] Chloride 106 97 - 110 mmol/L [facility] CO2 25 22 - 32 mmol/L [facility] Anion gap 9 2 - 15 mmol/L [facility] BUN 52(H) 6 - 25 mg/dL [facility] Creatinine 4.52(H) 0.80 - 1.30 mg/dL [facility] Glucose 239(H) 70 - 199 mg/dL [facility] Comment: Interpretive Data Fasting glucose >/= 126 mg/dl is diagnostic for diabetes. Fasting is defined as no caloric intake for at least 8 hours. Fasting glucose between 100 mg/dl to 125 mg/dl is diagnostic of prediabetes. In a patient with classic symptoms of hyperglycemia or hyperglycemic crisis, a random glucose >/= 200 mg/dl is diagnostic for diabetes. In the absence of unequivocal hyperglycemia, results should be confirmed by repeat testing. The classification and Diagnosis of Diabetes Diabetes Care 202; 46: S19-S40. Current interpretive data was last revised 2022. Calcium 9.0 8.5 - 10.3 mg/dL [facility] Phosphorus, pl 4.0 2.3 - 4.5 mg/dL [facility] Albumin 3.3(L) 3.5 - 5.0 g/dL [facility] Blood 02/24/2025 8:53 PM CDT 02/24/2025 9:48 PM CDT us Rita Hernandez MD LAB BLOOD ORDERABLES Fin al Result Performing Organization Address [facility] [[email or web address]] Co de Phone Number [facility] [place] [address] * Potassium, whole blood (02/24/2025 3:23 AM CDT) [facility] Potassium, bld 4.7 3.3 - 4.9 mmol/L Blood 02/24/2025 3:23 AM CDT 02/24/2025 4:31 AM CDT Rita Hernandez MD LAB BLOOD ORDERABLES Fin al Result Performing Organization Address City/[facility] de Phone Number [facility] [place] [address] from Last 3 Months Insurance [employer] PPO [employer] PPO Advance Directives For more information, please contact: [phone] Documents on File Type Date Recorded Patient Forensic Manager Expl anation ADVANCE DIRECTIVE 09/13/2024 12:27 PM DPO [employer] * Full Code (Latest Code Status on File) Date Activated Date Inactivated Comments 05/16/2025 2:15 AM 05/16/2025 8:10 PM * Full Code Date Activated Date Inactivated Comments 02/10/2025 9:18 PM 03/07/2025 9:44 PM * Full Code Date Activated Date Inactivated Comments 10/28/2024 5:30 AM 11/05/2024 9:38 PM * Full Code Date Activated Date Inactivated Comments 09/03/2024 10:47 PM 09/19/2024 7:07 PM * Full Code Date Activated Date Inactivated Comments 09/02/2024 7:45 PM 09/03/2024 9:04 PM Care Teams Circulator Relationship Specialty Start Date End Date Dakota Sheldon MD [address] [place] [address] PCP - General Family Medicine 04/27/24 Miscellaneous, Not In File 11/05/24
--- OUTSIDE RECORDS SUMMARY | 2025-05-27 14:59 | XMS_ITS | Clinical Summary ---
Author Organization Unknown Care Team Providers Care Shop Assistant Name Role Phone CHARAN BERRY, ELENA Unavailable Unavailable DANY RN, JACOB Unavailable Unavailable CANDACE ADAMS, ANITA Unavailable Unavailabl e Payers Payer Name Policy Type Policy Number Effective Date Expira tion Date [employer] MANAGED MEDICARE - [facility] [id number] Problems Condition Name Condition Details Condition Category Status Onset Date Resolution Date Last Treatment Date Treating Clinician Comments Disrupt/dehi sc closr int op (surg) wnd abd wl msl/fasc, subs Active 10-20 00:00: 00 UNSPECIFIED SEVERE PROTEIN-RICHARD JEFFERY MALNUTRITION Active 10-20 00:00: 00 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 Active 10-20 00:00: 00 HYPERTENSIVE CHRONIC KIDNEY DISEASE W STG 1-4/UNSP CHR KDNY Active 10-20 00:00: 00 TYPE 2 DIABETES MELLITUS W DIABETIC CHRONIC KIDNEY DISEASE Active 10-20 00:00: 00 CHRONIC KIDNEY DISEASE, UNSPECIFIED Active 10-20 00:00: 00 ANEMIA IN CHRONIC KIDNEY DISEASE Active 10-20 00:00: 00 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 10-20 00:00: 00 HYPERLIPIDEM IA, UNSPECIFIED Active 10-20 00:00: 00 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 Active 10-20 00:00: 00 PERSONAL HISTORY OF MALIGNANT NEOPLASM OF PROSTATE Active 10-20 00:00: 00 ENCOUNTER FOR FITTING AND ADJUSTMENT OF URINARY DEVICE Active 10-20 00:00: 00 PERSONAL HISTORY OF MALIGNANT NEOPLASM OF URETER Active 10-20 00:00: 00 Problems related to health literacy Active 10-20 00:00: 00 PERSONAL HISTORY OF NICOTINE DEPENDENCE Active 10-20 00:00: 00 CATARACT EXTRACTION STATUS, RIGHT EYE Active 10-20 00:00: 00 CATARACT EXTRACTION STATUS, LEFT EYE Active 10-20 00:00: 00 INTERMEDIATE (CURRENT) USE OF ASPIRIN Active 10-20 00:00: 00 Allergies, Adverse Reactions, Alerts Allergy Name Allergy Type Status Severity Reaction(s) Onset Date Inactive Date Treating Clinician Comments ULTRAM Propensity to adverse reactions Active 2025-03 14:01:1 1 Medications Ordered Medication Name Filled Medication Name Start Date Stop Date Current Medication? Ordering Clinician Indication Dosage Frequency Signature (SIG) Comments Components acetaminoph en 500 mg tablet 03-20 00:00: 00 Yes [id number] 2 tablet NEEDED 2 tablet NEEDED (route: oral) Med Classific ation: Analgesic , Anti-infl ammatory or Antipyret ic ascorbic acid (vitamin C) 500 mg capsule 03-20 00:00: 00 Yes [id number] 1 capsule DAILY 1 capsule DAILY (route: oral) Med Classific ation: Electroly te Balance-N utritiona l Products aspirin 81 mg tablet,melanie yed release 03-20 00:00: 00 Yes [id number] 1 tablet DAILY 1 tablet DAILY (route: oral) Med Classific ation: Hematolog ical Agents atorvastati n 10 mg tablet 03-20 00:00: 00 Yes [id number] 1 tablet DAILY 1 tablet DAILY (route: oral) Med Classific ation: Cardiovas cular Therapy Agents cholecalcif bassem (vitamin D3) 1,250 mcg (50,000 unit) tablet 03-20 00:00: 00 Yes [id number] 1 tablet DAILY 1 tablet DAILY (route: oral) Med Classific ation: Electroly te Balance-N utritiona l Products coenzyme Q10 (ubiquinol) 100 mg capsule 03-20 00:00: 00 Yes [id number] 1 capsule DAILY 1 capsule DAILY (route: oral) Med Classific ation: Alternati ve Therapy colestipol 1 gram tablet 03-20 00:00: 00 Yes [id number] 1 tablet 2 TIMES DAILY 1 tablet 2 TIMES DAILY (route: oral) Med Classific ation: Cardiovas cular Therapy Agents diphenhydra mine 25 mg-acetamin ophen 500 mg tablet 03-20 00:00: 00 Yes [id number] 2 tablet NEEDED 2 tablet NEEDED (route: oral) Med Classific ation: Analgesic , Anti-infl ammatory or Antipyret ic Juluca 50 mg-25 mg tablet 03-20 00:00: 00 Yes [id number] 1 tablet DAILY 1 tablet DAILY (route: oral) Med Classific ation: Anti-Infe ctive Agents latanoprost 0.005 % eye drops 03-20 00:00: 00 Yes [id number] 1 drops BEDTIME 1 drops BEDTIME (route: ophthalmic (eye)) Med Classific ation: Ophthalmi c Agents loratadine 10 mg capsule 03-20 00:00: 00 Yes [id number] 1 capsule DAILY 1 capsule DAILY (route: oral) Med Classific ation: Respirato ry Therapy Agents lutein 20 mg capsule 03-20 00:00: 00 Yes [id number] 1 capsule DAILY 1 capsule DAILY (route: oral) Med Classific ation: Alternati ve Therapy mecobalamin (vitamin B12) 1,000 mcg chewable tablet 03-20 00:00: 00 Yes [id number] 1 tablet DAILY 1 tablet DAILY (route: oral) Med Classific ation: Electroly te Balance-N utritiona l Products metformin 500 mg tablet 03-20 00:00: 00 05-10 23:59 :00 No [id number] 1 tablet 2 TIMES DAILY 1 tablet 2 TIMES DAILY (route: oral) Med Classific ation: Endocrine metoprolol succinate ER 50 mg tablet,exte nded release 24 hr 03-20 00:00: 00 Yes [id number] 1 tablet DAILY 1 tablet DAILY (route: oral) Med Classific ation: Cardiovas cular Therapy Agents Miralax 17 gram oral powder packet 03-20 00:00: 00 05-10 23:59 :00 No [id number] 1 powder in packet DAILY 1 powder in packet DAILY (route: oral) Med Classific ation: Gastroint estinal Therapy Agents multivitami n with minerals tablet 03-20 00:00: 00 Yes [id number] 1 tablet DAILY 1 tablet DAILY (route: oral) Med Classific ation: Electroly te Balance-N utritiona l Products Neuriva Plus Brain Performance 1.7 mg-400 mcg-2.4 mcg capsule 03-20 00:00: 00 Yes [id number] 1 capsule DAILY 1 capsule DAILY (route: oral) Med Classific ation: Electroly te Balance-N utritiona l Products oxybutynin chloride ER 15 mg tablet,exte nded release 24 hr 03-20 00:00: 00 05-10 23:59 :00 No [id number] 1 tablet DAILY 1 tablet DAILY (route: oral) Med Classific ation: Genitouri nary Therapy oxycodone 5 mg tablet 03-20 00:00: 00 05-10 23:59 :00 No [id number] 1 tablet NEEDED 1 tablet NEEDED (route: oral) Med Classific ation: Analgesic , Anti-infl ammatory or Antipyret ic Rybelsus 14 mg tablet 03-20 00:00: 00 Yes [id number] 1 tablet DAILY 1 tablet DAILY (route: oral) Med Classific ation: Endocrine tamsulosin 0.4 mg capsule 03-20 00:00: 00 Yes [id number] 1 capsule DAILY 1 capsule DAILY (route: oral) Med Classific ation: Genitouri nary Therapy timolol 0.5 % eye drops 03-20 00:00: 00 Yes [id number] 1 drops 2 TIMES DAILY 1 drops 2 TIMES DAILY (route: ophthalmic (eye)) Med Classific ation: Ophthalmi c Agents tizanidine 4 mg capsule 03-20 00:00: 00 Yes [id number] 1 capsule NEEDED 1 capsule NEEDED (route: oral) Med Classific ation: Locomotor System vitamin B complex capsule 03-20 00:00: 00 Yes [id number] 1 capsule DAILY 1 capsule DAILY (route: oral) Med Classific ation: Electroly te Balance-N utritiona l Products sodium chloride 0.9 % irrigation solution 03-20 00:00: 00 Yes [id number] 30-60 mL NEEDED 30-60 mL NEEDED (route: irrigation ) Med Classific ation: Electroly te Balance-N utritiona l Products Wound Cleanser irrigation spray 03-20 00:00: 00 05-10 23:59 :00 No [id number] Per instruc tions DIRECTED Per instructio ns DIRECTED (route: irrigation ) Med Classific ation: Dermatolo gical Moisture Barrier Ointment 0.44 %-20.6 % 03-20 00:00: 00 Yes [id number] Per instruc tions DIRECTED Per instructio ns DIRECTED (route: topical) Med Classific ation: Dermatolo gical Calcium Antacid 400 mg (as carbonate 1,000 mg) chewable tablet 04-14 00:00: 00 Yes [id number] 1 tablet 3 TIMES DAILY 1 tablet 3 TIMES DAILY (route: oral) Med Classific ation: Gastroint estinal Therapy Agents Benefiber Sugar Free (dextrin) 3 gram/4 gram oral powder 04-14 00:00: 00 Yes [id number] 3 gram DAILY 3 gram DAILY (route: oral) Med Classific ation: Gastroint estinal Therapy Agents oxybutynin chloride ER 10 mg tablet,exte nded release 24 hr 05-10 00:00: 00 Yes [id number] 1 tablet DAILY 1 tablet DAILY (route: oral) Med Classific ation: Genitouri nary Therapy sulfamethox azole 800 mg-trimetho prim 160 mg tablet 05-19 00:00: 00 Yes [id number] 1 tablet 2 TIMES DAILY 1 tablet 2 TIMES DAILY (route: oral) Med Classific ation: Anti-Infe ctive Agents Immunizations Ordered Immunization Name Filled Immunization Name Date Status Comments Refusal Reason COVID-19, COVID-19 2025-03-20 00:00:00 INFLUENZA, LAIV (LIVE VIRUS) 2024-06-23 00:00:00 PNEUMOCOCCAL (PPV), PPV 2022-06-26 00:00:00 Vital Signs Vital Name Observation Time Observation Value Commen ts Temperature 2025-05-25 14:19:00.000 99.1 [degF] Temperature 2025-05-23 16:36:00.000 98.2 [degF] Temperature 2025-05-19 13:28:00.000 97.4 [degF] Pulse 2025-05-25 14:19:00.000 78 /min Pulse 2025-05-23 16:36:00.000 77 /min Pulse 2025-05-19 13:28:00.000 63 /min O2 Saturation (%) 2025-05-25 14:19:00.000 97 % O2 Saturation (%) 2025-05-23 16:36:00.000 99 % O2 Saturation (%) 2025-05-19 13:28:00.000 99 % Respirations 2025-05-25 14:19:00.000 18 /min Respirations 2025-05-23 16:36:00.000 18 /min Respirations 2025-05-19 13:28:00.000 18 /min Weight (lbs) 2025-05-23 16:36:00.000 148 [lb_av] Weight (lbs) 2025-05-19 13:28:00.000 151 [lb_av] Systolic Blood Pressure 2025-05-25 14:19:00.000 112 mm [Hg] Systolic Blood Pressure 2025-05-23 16:36:00.000 124 mm [Hg] Systolic Blood Pressure 2025-05-19 13:28:00.000 118 mm [Hg] Diastolic Blood Pressure 2025-05-25 14:19:00.000 76 mm [Hg] Diastolic Blood Pressure 2025-05-23 16:36:00.000 82 mm [Hg] Diastolic Blood Pressure 2025-05-19 13:28:00.000 64 mm [Hg] Plan of Treatment Planned Activity Planned Date Details Comments Future Scheduled Test SKILLED NU RSE TO EVALUATE PATIENT, IDENTIFY PRIMARY AND CO-MORBID CONDITIONS CODED PER CODING GUIDELINES, AND DEVELOP PATIENT SPECIFIC PLAN OF CARE THAT INCLUDES PATIENT GOAL FOR HOME HEALTH. [code = SKILLED NURSE TO EVALUATE PATIENT, IDENTIFY PRIMARY AND CO-MORBID CONDITIONS CODED PER CODING GUIDELINES, AND DEVELOP PATIENT SPECIFIC PLAN OF CARE THAT INCLUDES PATIENT GOAL FOR HOME HEALTH.] Future Scheduled Test [facility] MAY ACCEPT ORDERS FROM THE FOLLOWING PHYSICIANS: ATTENDING AND PUBLIC TRANSIT SPECIALIST PHYSICIANS [code = HOME HEALTH AGENCY MAY ACCEPT ORDERS FROM THE FOLLOWING PHYSICIANS: ATTENDING AND PUBLIC TRANSIT SPECIALIST PHYSICIANS] Future Scheduled Test SKILLED NU RSE TO INSTRUCT PATIENT/CAREGIVER AND PERFORM CARE AND MANAGEMENT OF INDWELLING URINARY CATHETER. CATHETER INSERTION WITH 16 FR CATHETER WITH 10 ML BALLOON VIA STERILE TECHNIQUE, CHANGE Q MONTH AND PRN FOR LEAKING OR MALFUNCTIONING CATHETER. IRRIGATE URINARY CATHETER WITH 30-60CC NORMAL SALINE PRN BLOCKAGE/LEAKAGE, HEAVY SEDIMENT. 1 - 3 PRN HALF-WAY VISITS FOR CATHETER CHANGE(S) AND/OR TROUBLESHOOTING. [code = SKILLED NURSE TO INSTRUCT PATIENT/CAREGIVER AND PERFORM CARE AND MANAGEMENT OF INDWELLING URINARY CATHETER. CATHETER INSERTION WITH 16 FR CATHETER WITH 10 ML BALLOON VIA STERILE TECHNIQUE, CHANGE Q MONTH AND PRN FOR LEAKING OR MALFUNCTIONING CATHETER. IRRIGATE URINARY CATHETER WITH 30-60CC NORMAL SALINE PRN BLOCKAGE/LEAKAGE, HEAVY SEDIMENT. 1 - 3 PRN HALF-WAY VISITS FOR CATHETER CHANGE(S) AND/OR TROUBLESHOOTING.] Future Scheduled Test SKILLED NU RSE FOR O/A, TEACHING AND MANAGEMENT OF CHRONIC URETEROCUTANEOUS FISTULA S/P LEFT NEPHROURETERECTOMY FOR EARLY IDENTIFICATION OF EXACERBATION OF DISEASE PROCESS [code = SKILLED NURSE FOR O/A, TEACHING AND MANAGEMENT OF CHRONIC URETEROCUTANEOUS FISTULA S/P LEFT NEPHROURETERECTOMY FOR EARLY IDENTIFICATION OF EXACERBATION OF DISEASE PROCESS] Future Scheduled Test SKILLED NU RSE FOR O/A AND SKILLED TEACHING RELATED TO SIGNS AND SYMPTOMS OF INFECTION AND INFECTION CONTROL MEASURES. [code = SKILLED NURSE FOR O/A AND SKILLED TEACHING RELATED TO SIGNS AND SYMPTOMS OF INFECTION AND INFECTION CONTROL MEASURES.] Future Scheduled Test NEED FOR S KILLED TEACHING AND INTERVENTION RELATED TO DEHISCED SURGICAL WOUND TO LEFT LOWER QUADRANT. SKILLED NURSE OR TRAINED PATIENT/CAREGIVER TO PERFORM WOUND CARE USING CLEAN TECHNIQUE, CLEANSE WITH WOUND CLEANSER, PAT DRY WITH GAUZE, COVER WITH BORDERED GAUZE. WOUND CARE TO BE PERFORMED EVERY 2 DAYS AND PRN IF SOILED OR DISLODGED. 1-2 PRN SKILLED NURSE VISITS FOR WOUND CARE DUE TO COMPLICATIONS. SKILLED NURSE TO OBTAIN WOUND CULTURE PRN S/S OF INFECTION. WOUND CARE WILL BE PERFORMED BY TRAINED CAREGIVER ON DAYS WHEN SKILLED NURSE IS NOT SCHEDULED FOR A VISIT. DISCONTINUE WOUND CARE/SUPPLIES ONCE WOUND IS HEALED. [code = NEED FOR SKILLED TEACHING AND INTERVENTION RELATED TO DEHISCED SURGICAL WOUND TO LEFT LOWER QUADRANT. SKILLED NURSE OR TRAINED PATIENT/CAREGIVER TO PERFORM WOUND CARE USING CLEAN TECHNIQUE, CLEANSE WITH WOUND CLEANSER, PAT DRY WITH GAUZE, COVER WITH BORDERED GAUZE. WOUND CARE TO BE PERFORMED EVERY 2 DAYS AND PRN IF SOILED OR DISLODGED. 1-2 PRN SKILLED NURSE VISITS FOR WOUND CARE DUE TO COMPLICATIONS. SKILLED NURSE TO OBTAIN WOUND CULTURE PRN S/S OF INFECTION. WOUND CARE WILL BE PERFORMED BY TRAINED CAREGIVER ON DAYS WHEN SKILLED NURSE IS NOT SCHEDULED FOR A VISIT. DISCONTINUE WOUND CARE/SUPPLIES ONCE WOUND IS HEALED.] Future Scheduled Test SKILLED NU RSE TO OBTAIN BLOOD SUGAR PRN FOR SIGNS AND SYMPTOMS OF HYPO/HYPERGLYCEMIA. IF OBTAINED BY PATIENT/CAREGIVER PRIOR TO VISIT AND PATIENT IS NOT SYMPTOMATIC, SKILLED NURSE TO RECORD READING FROM PATIENT LOG. [code = SKILLED NURSE TO OBTAIN BLOOD SUGAR PRN FOR SIGNS AND SYMPTOMS OF HYPO/HYPERGLYCEMIA. IF OBTAINED BY PATIENT/CAREGIVER PRIOR TO VISIT AND PATIENT IS NOT SYMPTOMATIC, SKILLED NURSE TO RECORD READING FROM PATIENT LOG.] Future Scheduled Test SKILLED NU RSE FOR O/A AND TEACHING OF DIABETIC MANAGEMENT INCLUDING BLOOD SUGAR MONITORING/USE OF GLUCOMETER, DIABETIC DIET, LOWER EXTREMITY SKIN INSPECTION, PROPER SKIN/FOOT CARE, AND SIGNS AND SYMPTOMS HYPO/HYPERGLYCEMIA TO REPORT. [code = SKILLED NURSE FOR O/A AND TEACHING OF DIABETIC MANAGEMENT INCLUDING BLOOD SUGAR MONITORING/USE OF GLUCOMETER, DIABETIC DIET, LOWER EXTREMITY SKIN INSPECTION, PROPER SKIN/FOOT CARE, AND SIGNS AND SYMPTOMS HYPO/HYPERGLYCEMIA TO REPORT.] Future Scheduled Test SKILLED NU RSE TO INSTRUCT PATIENT/CAREGIVER ON PREVENTION OF SEPSIS, AND SIGNS AND SYMPTOMS OF SEPSIS TO REPORT. [code = SKILLED NURSE TO INSTRUCT PATIENT/CAREGIVER ON PREVENTION OF SEPSIS, AND SIGNS AND SYMPTOMS OF SEPSIS TO REPORT.] Future Scheduled Test PATIENT DELEON S A RISK OF HOSPITALIZATION AND ED USE. SKILLED NURSE TO ESTABLISH SUPPORT MEASURES TO MINIMIZE RISK OF HOSPITALIZATION AND ED USE, AND INSTRUCT PATIENT/CAREGIVER ON METHODS TO REDUCE AVOIDABLE HOSPITALIZATION AND ED USE. [code = PATIENT HAS A RISK OF HOSPITALIZATION AND ED USE. SKILLED NURSE TO ESTABLISH SUPPORT MEASURES TO MINIMIZE RISK OF HOSPITALIZATION AND ED USE, AND INSTRUCT PATIENT/CAREGIVER ON METHODS TO REDUCE AVOIDABLE HOSPITALIZATION AND ED USE.] Future Scheduled Test SKILLED NU RSE TO PROVIDE INSTRUCTION TO PATIENT/CAREGIVER RELATED TO DISCHARGE PLANNING. [code = SKILLED NURSE TO PROVIDE INSTRUCTION TO PATIENT/CAREGIVER RELATED TO DISCHARGE PLANNING.] Future Scheduled Test SKILLED NU RSE TO PERFORM ENVIRONMENTAL SAFETY RISK ASSESSMENT AND FALL RISK ASSESSMENT AND PROVIDE INSTRUCTION TO IMPLEMENT ENVIRONMENTAL SAFETY AND FALL PREVENTION STRATEGIES THROUGHOUT THE CERTIFICATION PERIOD. SKILLED NURSE WILL MAINTAIN SITUATIONAL AWARENESS AND WILL NOTIFY CLINICAL OFFICE AUTOMATION CLERK AND PHYSICIAN/PROVIDER WITH ANY CHANGE IN CONDITION. [code = SKILLED NURSE TO PERFORM ENVIRONMENTAL SAFETY RISK ASSESSMENT AND FALL RISK ASSESSMENT AND PROVIDE INSTRUCTION TO IMPLEMENT ENVIRONMENTAL SAFETY AND FALL PREVENTION STRATEGIES THROUGHOUT THE CERTIFICATION PERIOD. SKILLED NURSE WILL MAINTAIN SITUATIONAL AWARENESS AND WILL NOTIFY CLINICAL OFFICE AUTOMATION CLERK AND PHYSICIAN/PROVIDER WITH ANY CHANGE IN CONDITION.] Future Scheduled Test SKILLED NU RSE FOR OBSERVATION AND ASSESSMENT OF PATIENTS PAIN LEVEL AND EFFECTIVENESS OF PAIN MANAGEMENT REGIMEN. SKILLED NURSE TO INSTRUCT PATIENT/CAREGIVER REGARDING PHARMACOLOGIC AND NON-PHARMACOLOGIC PAIN CONTROL MEASURES. SKILLED NURSE TO REPORT TO PHYSICIAN IF PAIN LEVEL IS OUTSIDE OF ESTABLISHED PARAMETERS. [code = SKILLED NURSE FOR OBSERVATION AND ASSESSMENT OF PATIENTS PAIN LEVEL AND EFFECTIVENESS OF PAIN MANAGEMENT REGIMEN. SKILLED NURSE TO INSTRUCT PATIENT/CAREGIVER REGARDING PHARMACOLOGIC AND NON-PHARMACOLOGIC PAIN CONTROL MEASURES. SKILLED NURSE TO REPORT TO PHYSICIAN IF PAIN LEVEL IS OUTSIDE OF ESTABLISHED PARAMETERS.] Future Scheduled Test SKILLED NU RSE TO ASSESS PATIENT'S SKIN INTEGRITY AND INSTRUCT PATIENT/CAREGIVER ON MEASURES TO PREVENT PRESSURE ULCERS. [code = SKILLED NURSE TO ASSESS PATIENT'S SKIN INTEGRITY AND INSTRUCT PATIENT/CAREGIVER ON MEASURES TO PREVENT PRESSURE ULCERS.] Future Scheduled Test SKILLED NU RSE TO REVIEW PATIENT MEDICATIONS (PRESCRIPTION/OTC). INSTRUCT PATIENT/CAREGIVER ON ALL MEDICATIONS INCLUDING PURPOSE, WHEN TO TAKE, IMPORTANCE OF MEDICATION ADHERENCE, MONITORING OF EFFECTIVENESS, ADVERSE DRUG REACTIONS, POSSIBLE SIDE EFFECTS, AND WHEN TO NOTIFY AGENCY OR PHYSICIAN/PROVIDER OF ANY CONCERNS. [code = SKILLED NURSE TO REVIEW PATIENT MEDICATIONS (PRESCRIPTION/OTC). INSTRUCT PATIENT/CAREGIVER ON ALL MEDICATIONS INCLUDING PURPOSE, WHEN TO TAKE, IMPORTANCE OF MEDICATION ADHERENCE, MONITORING OF EFFECTIVENESS, ADVERSE DRUG REACTIONS, POSSIBLE SIDE EFFECTS, AND WHEN TO NOTIFY AGENCY OR PHYSICIAN/PROVIDER OF ANY CONCERNS.] Future Scheduled Test SKILLED NU RSE FOR O/A, TEACHING AND MANAGEMENT OF URINARY TRACT INFECTION. [code = SKILLED NURSE FOR O/A, TEACHING AND MANAGEMENT OF URINARY TRACT INFECTION.] Future Scheduled Test PHYSICAL T HERAPIST TO EVALUATE PATIENT SECONDARY TO FUNCTIONAL DEFICITS/SAFETY CONCERNS. PHYSICAL THERAPY TO ESTABLISH /UPGRADE/DOWNGRADE THERAPEUTIC EXERCISE PROGRAM AND INSTRUCT PATIENT/CAREGIVER ON EXERCISE PRECAUTIONS WITH WRITTEN HOME PROGRAM. MAY INCLUDE PROM, AAROM, AROM, RROM APPROPRIATE TO IMPROVE FUNCTIONAL STRENGTH AND RANGE OF MOTION. PHYSICAL THERAPY TO INSTRUCT PATIENT/CAREGIVER ON GAIT TRAINING TECHNIQUES USING APPROPRIATE ASSISTIVE DEVICE, PROPER BODY MECHANICS TO IMPROVE MOBILITY, AND PREVENT INJURY OF PATIENT AND/OR CAREGIVER. PHYSICAL THERAPY TO INSTRUCT PATIENT/CAREGIVER ON BALANCE AND BALANCE STRATEGIES TO IMPROVE SAFE MOBILITY AND REDUCE RISK FOR FALL AND INJURY PHYSICAL THERAPIST TO ASSESS BEST PRACTICE INTERVENTIONS TO ASSIST PATIENTS TO IMPROVE OR STABILIZE MEDICAL STATUS AND PREVENT RE-HOSPITALIZATION. MEASURES INCLUDING REVIEW AND IDENTIFICATION OF CONCERNS FOR THE FOLLOWING AREAS: DRUG REGIMEN, DIABETIC FOOT CARE, ENVIRONMENTAL SAFETY ISSUES AND FALLS, PRESSURE ULCERS, PAIN, AND DISEASE MANAGEMENT. [code = PHYSICAL THERAPIST TO EVALUATE PATIENT SECONDARY TO FUNCTIONAL DEFICITS/SAFETY CONCERNS. PHYSICAL THERAPY TO ESTABLISH /UPGRADE/DOWNGRADE THERAPEUTIC EXERCISE PROGRAM AND INSTRUCT PATIENT/CAREGIVER ON EXERCISE PRECAUTIONS WITH WRITTEN HOME PROGRAM. MAY INCLUDE PROM, AAROM, AROM, RROM APPROPRIATE TO IMPROVE FUNCTIONAL STRENGTH AND RANGE OF MOTION. PHYSICAL THERAPY TO INSTRUCT PATIENT/CAREGIVER ON GAIT TRAINING TECHNIQUES USING APPROPRIATE ASSISTIVE DEVICE, PROPER BODY MECHANICS TO IMPROVE MOBILITY, AND PREVENT INJURY OF PATIENT AND/OR CAREGIVER. PHYSICAL THERAPY TO INSTRUCT PATIENT/CAREGIVER ON BALANCE AND BALANCE STRATEGIES TO IMPROVE SAFE MOBILITY AND REDUCE RISK FOR FALL AND INJURY PHYSICAL THERAPIST TO ASSESS BEST PRACTICE INTERVENTIONS TO ASSIST PATIENTS TO IMPROVE OR STABILIZE MEDICAL STATUS AND PREVENT RE-HOSPITALIZATION. MEASURES INCLUDING REVIEW AND IDENTIFICATION OF CONCERNS FOR THE FOLLOWING AREAS: DRUG REGIMEN, DIABETIC FOOT CARE, ENVIRONMENTAL SAFETY ISSUES AND FALLS, PRESSURE ULCERS, PAIN, AND DISEASE MANAGEMENT. ] Goal Patient Goal - TO GET STRONG ER Goal 2025-05-17 Patient Goal - TO GET STRONG ER Goal Provider Goal - A PLAN OF CARE WILL BE ESTABLISHED THAT MEETS PATIENT'S HALF-WAY NEEDS AND INCLUDES PATIENT GOAL FOR HOME HEALTH. Goal Provider Goal - ADDITIONAL ORDERS WILL BE RECEIVED FROM ALTERNATE PHYSICIAN IN A TIMELY MANNER THROUGHOUT THE CERTIFICATION PERIOD. Goal Provider Goal - PATIENT WILL VERBALIZE TOLERANCE OF CATHETER CHANGE AND KNOWLEDGE OF REQUIRED CARE TO MANAGE INDWELLING URINARY CATHETER WITHOUT COMPLICATIONS BY THE END OF THE CERTIFICATION PERIOD. Goal Provider Goal - PATIENT/CAREGIVER WILL VERBALIZE UNDERSTANDING OF GENITOURINARY DISEASE PROCESS, AND EXACERBATIONS OF GENITOURINARY DISEASE WILL BE PROMPTLY IDENTIFIED FOR EARLY INTERVENTION THROUGHOUT THE CERTIFICATION PERIOD. Goal Provider Goal - PATIENT/CAREGIVER WILL VERBALIZE/DEMONSTRATE UNDERSTANDING OF S/S OF INFECTION AND INFECTION CONTROL MEASURES. SIGNS AND SYMPTOMS OF INFECTION WILL BE IDENTIFIED AND PHYSICIAN NOTIFIED FOR PROMPT INTERVENTION THROUGHOUT THE CERTIFICATION PERIOD. Goal Provider Goal - WOUND CARE WILL BE COMPLETED AND PATIENT WILL HAVE IMPROVED WOUND STATUS EVIDENCED BY NO SIGNS AND SYMPTOMS OF INFECTION, DECREASED WOUND SIZE, AND/OR NO COMPLICATIONS BY THE END OF THE CERTIFICATION PERIOD. Goal Provider Goal - BLOOD SUGAR READING WILL BE OBTAINED ORDERED THROUGHOUT CERTIFICATION PERIOD. Goal Provider Goal - PATIENT/CAREGIVER WILL VERBALIZE/DEMONSTRATE KNOWLEDGE OF DIABETIC MANAGEMENT. CHANGES IN DIABETIC STATUS WILL BE IDENTIFIED AND REPORTED TO PHYSICIAN FOR PROMPT INTERVENTION THROUGHOUT THE CERTIFICATION PERIOD. Goal Provider Goal - PATIENT WILL BE FREE FROM INFECTION AND PATIENT/CAREGIVER WILL VERBALIZE UNDERSTANDING OF SIGNS AND SYMPTOMS AND METHODS TO PREVENT SEPSIS BY END OF THE EPISODE. Goal Provider Goal - PATIENT WILL HAVE SUPPORT MEASURES ESTABLISHED TO PREVENT HOSPITALIZATION AND ED USE AND PATIENT/CAREGIVER WILL VERBALIZE/DEMONSTRATE METHODS TO REDUCE AVOIDABLE HOSPITALIZATION AND ED USE BY END OF EPISODE. Goal Provider Goal - PATIENT/CAREGIVER WILL VERBALIZE UNDERSTANDING OF DISCHARGE PLANNING INSTRUCTIONS BY DATE OF DISCHARGE. Goal Provider Goal - PATIENT/CAREGIVER WILL VERBALIZE/DEMONSTRATE EFFECTIVE ENVIRONMENTAL SAFETY AND FALL PREVENTION STRATEGIES, WILL REMAIN SAFE IN THE COMMUNITY, AND WILL BE FREE OF DANGER TO SELF AND OTHERS THROUGHOUT THE CERTIFICATION PERIOD. Goal Provider Goal - PATIENT/CAREGIVER WILL DEMONSTRATE UNDERSTANDING OF PHARMACOLOGIC AND NONPHARMACOLOGIC PAIN CONTROL MEASURES AND PATIENT WILL HAVE IMPROVEMENT IN PAIN INTERFERING WITH ACTIVITY EVIDENCED BY PAIN AT A LEVEL THAT IS ACCEPTABLE TO THE PATIENT AND PAIN LEVEL WITHIN ESTABLISHED PARAMETERS BY END OF CERTIFICATION PERIOD. Goal Provider Goal - PATIENT/CAREGIVER WILL VERBALIZE UNDERSTANDING OF PRESSURE ULCER PREVENTION BY END OF THE EPISODE. Goal Provider Goal - PATIENT/CAREGIVER WILL VERBALIZE UNDERSTANDING OF EDUCATION PROVIDED ON MEDICATIONS BY THE END OF THE CERTIFICATION PERIOD. Goal Provider Goal - PATIENT/CAREGIVER WILL VERBALIZE UNDERSTANDING OF URINARY TRACT INFECTION DISEASE PROCESS AND MANAGEMENT. PATIENT WILL BE FREE OF S/S OF UTI UPON COMPLETION OF TREATMENT OF UTI. Goal Provider Goal - PHYSICAL THERAPY EVALUATION TO BE COMPLETED WITH RECOMMENDATIONS AND/OR WRITTEN TREATMENT PLAN OF CARE ESTABLISHED FOR THE PHYSICIANS SIGNATURE PATIENT/CAREGIVER WILL PERFORM THERAPEUTIC EXERCISE/S AND DEMONSTRATE PARTICIPATION IN A HOME PROGRAM. PATIENT/CAREGIVER WILL DEMONSTRATE IMPROVED GAIT TECHNIQUES TO MINIMIZE RISK OF INJURY. PATIENT/CAREGIVER WILL DEMONSTRATE IMPROVED BALANCE AND REDUCE THE RISK OF FALLS AND INJURY. PATIENT/CAREGIVER VERBALIZES UNDERSTANDING OF THE INITIAL BEST PRACTICE RECOMMENDATIONS. PHYSICIAN TO BE NOTIFIED APPROPRIATE FOR ANY CHANGES OR COMPLICATIONS THROUGHOUT THE CERTIFICATION PERIOD. Progress Notes Progress Notes <paragraph>[Visit Date: 2024 by YOBANI KATZ LPN]:</paragraph><paragraph>CALL RECEIVED FROM SHANITA REQUESTING A HALF-WAY VISIT TODAY INSTEAD OF SCHEDULED DAY ON 05/24/25. SHANITA STATED HE IS HAVING INTERMITTENT ELEVATED TEMPERATURES RANGING FROM 99-100 F . NURSE ABLE TO ACCOMMODATE SHANITA'S REQUEST OF A HALF-WAY VISIT TODAY. SHANITA WAS IN THE BATHROOM UPON NURSE ENTRY. CAREGIVER, LUIS, PRESENT FOR VISIT. SHANITA OBSERVED AMBULATING FROM BATHROOM TO SOFA WITH A SLOW UNSTEADY GAIT. SHANITA PLEASANT AND COOPERATIVE THROUGHOUT VISIT, LAUGHING AND JOKING WITH NURSE THROUGHOUT VISIT. DENIED ANY PAIN THROUGHOUT VISIT. HE REMAINS HOMEBOUND RELATED TO NEED OF ASSISTANCE OF ANOTHER PERSON AND ASSISTIVE DEVICE TO LEAVE HOME SAFELY. HE DENIED ANY FALLS, ER VISITS, OR CHANGES IN MEDICATION SINCE LAST VISIT. VITAL SIGNS STABLE. TEMPERATURE WNL. LUNG SOUNDS CLEAR AUSCULTATION BILATERALLY. DENIED ANY COUGH OR SHORTNESS OF BREATH. HEART RHYTHM REGULAR. DENIED ANY LIGHTHEADEDNESS, DIZZINESS, OR CHEST PAIN. BOWEL SOUNDS PRESENT X4 QUADRANTS. ABDOMEN SOFT, NONDISTENDED. GORMAN CATHETER REMAINS IN PLACE DRAINING CLEAR, YELLOW URINE. NO ABNORMAL CHARACTERISTICS TO URINE OBSERVED. WOUND CARE PROVIDED TO ABDOMINAL INCISION SITE USING ASEPTIC TECHNIQUE. SCANT AMOUNT OF SERIOUS DRAINAGE OBSERVED TO OLD DRESSING. INCISION SITE DOCUMENTED IN ICC AND SLIPPED. SHANITA TOLERATED WOUND CARE WELL WITHOUT COMPLAINTS OF PAIN OR DISCOMFORT. NO SIGNS OR SYMPTOMS OF INFECTION TO INCISION SITE OBSERVED OR REPORTED. EDUCATION THIS VISIT FOCUSED ON WOUND CARE, INFECTION PREVENTION AND CONTROL INCLUDING HAND HYGIENE, AND SIGNS AND SYMPTOMS OF INFECTION. ALSO REVIEWED MEDICATIONS INCLUDING INDICATIONS, FREQUENCY, AND POTENTIAL SIDE EFFECTS. SHANITA VOICED UNDERSTANDING TO ALL EDUCATION AND DENIED HAVING ANY QUESTIONS. SHANITA DENIED ANY OTHER SYMPTOMS OCCURRING OTHER THAN INTERMITTENT ELEVATED TEMPERATURES. SHANITA STATED HE HAS NOT TAKEN ANY FEVER REDUCING MEDICATIONS, IT JUST GOES AWAY ON ITS OWN WITHIN AN HOUR. ACTION PLANS REVIEWED. CALENDAR REVIEWED. SHANITA ALERTED NURSE THAT HE HAD RECEIVED A NOTIFICATION VIA [employer] THAT LAB WORK IS NEEDED THIS Friday05/27/25 AND THAT HE HAS REQUESTED HIS DOCTOR SEND LAB ORDERS TO NEW FOR NURSE TO COMPLETE AT NEXT VISIT. CALL PLACED TO PCP WITH MESSAGE LEFT REQUESTING LAB ORDERS TO BE COMPLETED. AWAITING RETURN CALL.</paragraph> Encounters Start Date/Time End Date/Time Encounter Type Admission Type Attending [facility] Care Department Encounter ID Discharge Date Discharge Status Discharge Condition Discharge Reason Percent Goals Met 2025-05-19 00:00:00 2025-07-17 00:00:00 Outpatient RECERTANITA TURCIOS [facility] ED [id number] 10.00
[2025-05-27 15:38] LABS: Albumin Level 4.1 g/dL (3.5-5.1); Anion Gap 13 mmol/L (4-12); Blood Urea Nitrogen 44 mg/dL (7-20); Calcium 9.2 mg/dL (8.4-10.2); Carbon Dioxide 20 mmol/L (22-30); Chloride 105 mmol/L (96-107); Estimated Glomerular Filt Rate 11; Glucose 82 mg/dL (65-110); Potassium 4.8 mmol/L (3.4-5.0); Sodium 138 mmol/L (137-145)
[2025-05-27 15:51] LABS: Parathyroid Intact 25.4 pg/mL (14.5-75.2)
== END 2025-05-27 14:52 | disposition home or self-care (01) ==
LOC: ANHLAB 14:55
DX: N18.9 Chronic kidney disease, unspecified (principal); N17.8 Other acute kidney failure
CPT/HCPCS: 36415; 80069; 83970